=== PATIENT | male | born 1985 | race Caucasian/White ===

== ENCOUNTER 2022-09-06 11:44 | Outpatient (REF) | payer OTHER, SELFPAY ==
[2022-09-06 14:16] LABS: Alanine Aminotransferase 19 U/L (0-40); Albumin Level 4.4 g/dL (3.5-5.0); Alkaline Phosphatase 78 U/L (39-117); Anion Gap 14 (12-20); Aspartate Amino Transferase 17 U/L (5-37); Bilirubin Total 0.8 mg/dL (0.0-1.0); Blood Urea Nitrogen 21 mg/dL (9-16); Calcium 9.1 mg/dL (8.4-10.2); Carbon Dioxide 23 mmol/L (22-29); Chloride 106 mmol/L (96-108); Cholesterol 151 mg/dL; Estimated Glomerular Filt Rate > 60; Glucose Fasting 98 mg/dL (60-99); HDL Cholesterol 37 mg/dL; LDL Cholesterol Calculated 106 mg/dl; Potassium 4.2 mmol/L (3.3-5.1); Sodium 139 mmol/L (135-145); Total Protein 7.1 g/dL (6.5-8.0); Triglycerides 43 mg/dL
[2022-09-06 14:17] LABS: Appearance Urine Clear; Color Urine Yellow; Glucose Urine UA Negative (Negative); Leukocyte Esterase Urine Negative (Negative); Nitrite Urine Negative (Negative); PH 5.5 (5.0-9.0); Specific Gravity - Urine 1.025 (1.005-1.025); Urine Blood Negative (Negative); Urine Ketones Negative (Negative); Urine Protein Negative (Neg-Trace)
[2022-09-06 14:40] LABS: TSH reflex Free T4 0.96 uIU/mL (0.32-4.0)
[2022-09-06 15:05] LABS: Creatinine Urine 184.47 mg/dL; Microalbum/Creatinine Ratio Ur 3.2 ug/mg cr
== END 2022-09-06 11:45 | disposition home or self-care (01) ==
LOC: HO.WFDLDS 11:44
PROVIDERS: Visit Provider Family Medicine
DX: Z00.00 Encounter for general adult medical examination without abnormal findings (principal); I10 Essential (primary) hypertension
CPT/HCPCS: 36415; 80053; 80061; 81003; 82043; 84443

== ENCOUNTER 2022-10-23 14:30 | Outpatient (RCR) | payer OTHER, SELFPAY ==
--- NOTE | 2022-09-30 14:12 | MHC.OT.EP ---
[address] [phone] Occupational Therapy Plan of Care Date of Evaluation: 09/30/22 Diagnosis: EPICONDYLITIS RIGHT ELBOW Assessment: MR PEREZ REPORTS A SIX MONTH HISTORY OF R ELBOW PAIN. HE REPORTS THIS OCCURRING IN 2017 YET IMPROVED ON ITS OWN WITHOUT NEED FOR THERAPY, MADE LIFESTYLE CHANGES. HE HAS A CFB YET REPORTS MINIMAL PAIN RELIEF WITH USE. A 61% LIMITATION IS REPORTED PER THE QUICK DASH ASSESSMENT. HIS GOAL IS FOR HIS PAIN TO DECREASE WHEN SHAKING HANDS. ONGOING SKILLED OT IS WARRANTED TO ACHIEVE OPTIMAL FUNCTIONAL LEVEL. Frequency and Duration: The patient will be seen 3X/WEEK FOR 4 WEEKS Short Term Goals: SEE BELOW Fdc Goals: IND HEP IND USE OF HEAT/ICE IND USE OF CFB DURING IADLs REPORT <3/10 PAIN WITH IADLs AND SHAKING HANDS IND PROGRESSION OF HEP QUICK DASH <40% TRIAL ALT SLEEPING POSITIONS FOR DECREASE IN PARASTHESIA AND PAIN Treatment Plan: Therapeutic Exercise Therapeutic Activity Home Exercise Program Splinting Neuro Re-ed Patient Education Desensitization/Sensory Re-ed Edema Control ADL Training Ultrasound NMES Iontophoresis Paraffin Fluidotherapy MHP Cold Packs Joint Mobilization Soft Tissue Mobilization Kinesiotaping Other (see comments) Electronically Signed By: EDI SANCHEZ OTR/L Please Sign and return to therapist. Thank you once again for your referral.
--- NOTE | 2022-10-23 15:11 | MHC.OT.DC ---
[address] [phone] F: [phone] Occupational Therapy Discharge Note Provider: Ramiro Edgar Diagnosis: EPICONDYLITIS RIGHT ELBOW Date of Evaluation: 09/30/22 Date of Discharge: 10/23/22 Treatments to Date: 7 Discharge Status: Achieved Goals Improved Function Independent with HEP Discharge Summary: MR PEREZ HAS PROGRESSED WELL WITH HIS OT RX SESSIONS. HE WAS ISSUED A CFB FOR USE DURING THE DAY, WELL A CUSTOM NIGHT SPLINT TO REST THE WRIST EXTENSORS. HE WAS PROVIDED WITH A HEP IN WHICH HE IS ABLE TO COMPLETE INDEPENDENTLY WELL DEMO PROGRESSION OF PROGRAM. EDUCATION WAS PROVIDED ON ACTIVITY MODIFICATIONS, ERGONOMICS AND POSTURAL CORRECTIONS. HE IS READY FOR A TRANSITION TO A HOME BASED PROGRAM WITH NO FURTHER OT SERVICES WARRANTED. Electronically Signed By: PRADEEP BOWLING/Hesham Reviewed/agree with student documentation: N/A Therapist: Please Sign and return to therapist, thank you for your referral.
== END 2022-10-23 15:10 | disposition home or self-care (01) ==
LOC: HO.OT 14:30
PROVIDERS: PCP Family Medicine; Visit Provider Family Medicine
DX: M77.10 Lateral epicondylitis, unspecified elbow (principal)
CPT/HCPCS: 29105; 97033; 97110; 97140; 97165; 97760

== ENCOUNTER 2022-12-19 09:37 | Outpatient (REF) | payer OTHER, SELFPAY ==
[2022-12-19 11:40] LABS: Alanine Aminotransferase 39 U/L (0-40); Albumin Level 4.4 g/dL (3.5-5.0); Alkaline Phosphatase 64 U/L (39-117); Anion Gap 13 (12-20); Aspartate Amino Transferase 22 U/L (5-37); Bilirubin Total 0.9 mg/dL (0.0-1.0); Blood Urea Nitrogen 20 mg/dL (9-16); Calcium 9.4 mg/dL (8.4-10.2); Carbon Dioxide 24 mmol/L (22-29); Chloride 108 mmol/L (96-108); Cholesterol 139 mg/dL; Estimated Glomerular Filt Rate > 60; Glucose Fasting 83 mg/dL (60-99); HDL Cholesterol 48 mg/dL; LDL Cholesterol Calculated 85 mg/dl; Potassium 4.1 mmol/L (3.3-5.1); Sodium 141 mmol/L (135-145); Total Protein 6.8 g/dL (6.5-8.0); Triglycerides 30 mg/dL
[2022-12-19 11:59] LABS: TSH reflex Free T4 0.99 uIU/mL (0.32-4.0)
[2022-12-19 12:00] LABS: Appearance Urine Clear; Color Urine Yellow; Glucose Urine UA Negative (Negative); Leukocyte Esterase Urine Negative (Negative); Nitrite Urine Negative (Negative); Specific Gravity - Urine >= 1.030 (1.005-1.025); Urine Blood Negative (Negative); Urine Ketones 40 mg/dL (Negative); Urine Protein Negative (Neg-Trace)
== END 2022-12-19 09:38 | disposition home or self-care (01) ==
LOC: HO.WFDLDS 09:37
PROVIDERS: Visit Provider Family Medicine
DX: Z00.00 Encounter for general adult medical examination without abnormal findings (principal); E78.6 Lipoprotein deficiency
CPT/HCPCS: 36415; 80053; 80061; 81003; 84443

== ENCOUNTER 2023-05-19 14:47 | Outpatient (AMB) | payer OTHER, SELFPAY ==
[2023-05-19 15:03] VITALS: BP 128/72; PULSE 78; O2SAT 98; BMI 37.3
--- NOTE | 2023-05-19 15:03 | A.OFFPC_ITS ---
Vital Signs 05/19/23 15:03 Height 5 ft 6 in Weight 231 lb BMI 37.3 BP 128/72 Blood Pressure Location Lt brachial Position Sitting Pulse 78 Pulse Source Pulse Oximeter Pulse Oximetry (%) 98 Oxygen Delivery Method Room Air Intake Visit Reasons: medication discussion Intake Note: Patient is here for request of refill of Adderall. Allergies Nitrile Allergy (Unknown, Uncoded 05/19/23 15:07) Blisters Tobacco use date assessed: 12/19/22 Dental Screening Dental Screen Date: 05/19/23 Did you have a dental visit in the last 12 months?: Yes Did you have a dental problem in the last 6 months where you did not have access to dental care?: No Was dental information given to patient?: No HPI medication discussion HPI Details 38 y/o male presents to discuss medications. He reports hx of ADHD and states he had been on Adderall. Reviewed [facility] medical record; patient has no CIS of ADHD and had been on Adderall XR 10 mg and Adderall immediate release 10 mg. 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 He would like to resume Adderall. [facility] Social History Housing: House Patient Tobacco Use Status: Never used Tobacco e-Cigarette/Vaping Use: Never Used Second Hand Smoke Exposure: No Current occupational status: unemployed Current occupational exposures/hazards: No Cognitive needs: No Hearing needs: No Vision needs: No Questionnaire PHQ-9 Over the last 2 weeks, how often have you been bothered by any of the following problems? 1. Little interest or pleasure in doing things: not at all 2. Feeling down, depressed, or hopeless: not at all 3. Trouble falling or staying asleep, or sleeping too much: not at all 4. Feeling tired or having little energy: not at all 5. Poor appetite or overeating: not at all 6. Feeling bad about yourself - or that you are a failure or have let yourself or your family down: not at all 7. Trouble concentrating on things, such as reading the newspaper or watching television: nearly every day 8. Moving or speaking so slowly that other people could have noticed. Or the opposite - being so fidgety or restless that you have been moving around a lot more than usual: not at all 9. Thoughts that you would be better off or of hurting yourself in some way: not at all Total score: 3 Source: Developed by Drs. Viktor Franz, Ashley Jacobsen, Miguel Crocker and colleagues, with an educational ayaka from [employer]. ABDIEL-7 AMB Questionnaire ABDIEL-7 Date ABDIEL - 7 assessed: 05/19/23 Feeling nervous, anxious, or on edge: 0 = Not at all Not being able to stop or control worryin = Not at all Worrying too much about different things: 0 = Not at all Trouble relaxin = Not at all Being so restless that it is hard to sit still: 0 = Not at all Becoming easily annoyed or irritable: 0 = Not at all Feeling afraid as if something awful might happen: 0 = Not at all Total ABDIEL-7 score (0-4 normal; 5-9 mild; 10-14 moderate; 15-21 severe): 0 Source: Developed by Drs. Viktor Franz, Ashley Jacobsen, Miguel Crocker and colleagues, with an educational ayaka from [employer]. Review of Systems Const Denies chills, Denies fatigue, Denies fever(s), Denies headache(s) and Denies weakness ENT Denies dizziness and Denies headache(s) Card Denies dyspnea Resp Denies cough, Denies dyspnea, Denies wheezing and Denies other (shortness of breath) Musc Denies numbness and Denies tingling Neuro Denies dizziness, Denies headache(s), Denies numbness, Denies tingling and Denies weakness Psych Denies anxiety and Denies depression Endo Denies fatigue Aller/Immun Denies wheezing Physical exam (Primary Care) Vital Signs: Last Vital Signs Pulse 78 05/19/23 15:03 BP 128/72 05/19/23 15:03 Pulse Ox 98 05/19/23 15:03 Oxygen Delivery Method Room Air 05/19/23 15:03 BMI result Body Mass Index 37.3 Tobacco/Smoking Status: Tobacco use Status Tobacco use date assessed 12/19/22 05/19/23 15:08 Patient Tobacco Use Status Never used Tobacco 05/19/23 15:08 e-Cigarette/Vaping Use Never Used 05/19/23 15:08 PHQ-9: PHQ-9 Score PHQ-9: Total score 3 05/19/23 15:17 Const General: well developed; No acute distress Nutritional Appearance: well nourished and obese Orientation/consciousness: patient oriented x3 HENMT Head: Yes normocephalic and Yes atraumatic Eyes General: appearance normal, both eyes and all related structures Pupils: Equal, round and reactive pupils present EOM: EOMs intact bilaterally Resp Effort & Inspection: normal respiratory effort Neuro General: patient oriented x3 and gait normal Cranial nerves: Yes Equal, round and reactive pupils present Psych Affect: normal affect Assessment and Plan Assessment & Plan (1) ADHD: Code(s): F90.9 - Attention-deficit hyperactivity disorder, unspecified type Plan: Will start patient back on Adderall XR 10 mg daily. Discussed that we will follow-up in a month and I would like him to try to take it consistently each day. He will call me if he is having any difficulties. New contract is signed Medications: New dextroamphetamine-amphetamine 10 mg ER (Adderall XR) [facility] verified. Partial refill upon request. 10 mg PO QAM 30 days 30 caps 0RF Coding Level of Care Code Est Pt Level 3 (51829) Diagnoses ADHD F90.9
== END 2023-05-19 15:57 | disposition home or self-care (01) ==
PROVIDERS: PCP Family Medicine; Visit Provider Family Medicine
DX: F90.9 Attention-deficit hyperactivity disorder, unspecified type (principal)
CPT/HCPCS: 99213

== ENCOUNTER 2023-06-25 16:34 | Outpatient (AMB) | payer OTHER, SELFPAY ==
[2023-06-25 16:36] VITALS: BP 124/74; PULSE 85; O2SAT 95; BMI 36.5
--- NOTE | 2023-06-25 16:36 | MHC.PC.OV ---
Vital Signs 06/25/23 16:36 Height 5 ft 6 in Weight 226 lb BMI 36.5 BP 124/74 Blood Pressure Location Lt brachial Position Standing Pulse 85 Pulse Source Pulse Oximeter Pulse Oximetry (%) 95 Oxygen Delivery Method Room Air Intake Visit Reasons: Follow-up ADHD Intake Note: Patient is here to follow up on ADHD. Tobacco use date assessed: 06/25/23 Dental Screening Dental Screen Date: 06/25/23 Did you have a dental visit in the last 12 months?: Yes Did you have a dental problem in the last 6 months where you did not have access to dental care?: No Was dental information given to patient?: Patient has dentist HPI Follow-up ADHD HPI Details 38 y/o male presents to f/u ADHD. Started him on Adderall XR 10mg daily. He denies any issues with appetite/sleep/anxiety. He states Adderall has not been helping him yet. HPI Comments History of Present Illness Details Documentation assistance for Ramiro Edgar MD, was provided by Yariel Grimaldo,? Packaging Manager on 06/25/2023 5:13 PM EST. I, Dr. Edgar, have read, observed, and verified documentation.? [facility] Social History Housing: House Patient Tobacco Use Status: Never used Tobacco e-Cigarette/Vaping Use: Never Used Second Hand Smoke Exposure: No Current occupational status: unemployed Current occupational exposures/hazards: No Cognitive needs: No Hearing needs: No Vision needs: No Questionnaire ABDIEL-7 AMB Questionnaire ABDIEL-7 Date ABDIEL - 7 assessed: 05/19/23 Source: Developed by Drs. Viktor Franz, Ashley Jacobsen, Miguel Crocker and colleagues, with an educational ayaka from [employer]. Review of Systems Const Denies chills, Denies fatigue, Denies fever(s), Denies headache(s) and Denies weakness ENT Denies dizziness and Denies headache(s) Card Denies dyspnea Resp Denies cough, Denies dyspnea, Denies wheezing and Denies other (shortness of breath) Musc Denies numbness and Denies tingling Neuro Denies dizziness, Denies headache(s), Denies numbness, Denies tingling and Denies weakness Psych Denies anxiety and Denies depression Endo Denies fatigue Aller/Immun Denies wheezing Physical exam (Primary Care) Vital Signs: Last Vital Signs Pulse 85 06/25/23 16:36 BP 124/74 06/25/23 16:36 Pulse Ox 95 06/25/23 16:36 Oxygen Delivery Method Room Air 06/25/23 16:36 BMI result Body Mass Index 36.5 Tobacco/Smoking Status: Tobacco use Status Tobacco use date assessed 06/25/23 06/25/23 16:42 Patient Tobacco Use Status Never used Tobacco 06/25/23 16:42 e-Cigarette/Vaping Use Never Used 06/25/23 16:42 Const General: well developed; No acute distress Nutritional Appearance: well nourished Orientation/consciousness: patient oriented x3 HENMT Head: Yes normocephalic and Yes atraumatic Eyes General: appearance normal, both eyes and all related structures Pupils: Equal, round and reactive pupils present EOM: EOMs intact bilaterally Resp Effort & Inspection: normal respiratory effort Neuro General: patient oriented x3 and gait normal Cranial nerves: Yes Equal, round and reactive pupils present Psych Affect: normal affect Assessment and Plan Assessment & Plan (1) ADHD: Code(s): F90.9 - Attention-deficit hyperactivity disorder, unspecified type Plan: Patient says that 10 mg daily isn't really helping his concentration very much if at all and he also denies any adverse effects such as sleep problems appetite problems or anxiety issues. Will increase Adderall XR to 20 mg daily (2) Sleep apnea: Code(s): G47.30 - Sleep apnea, unspecified Plan: Hypersomnia and question of sleep apnea Referred to Sleep Medicine Orders: Referrals Sleep Medicine Referral G47.30 - Sleep apnea, unspecified Coding Level of Care Code Est Pt Level 3 (30718) Diagnoses ADHD F90.9 Sleep apnea G47.30
== END 2023-06-25 17:19 | disposition home or self-care (01) ==
PROVIDERS: PCP Family Medicine; Visit Provider Family Medicine
DX: F90.9 Attention-deficit hyperactivity disorder, unspecified type (principal); G47.30 Sleep apnea, unspecified
CPT/HCPCS: 99213

== ENCOUNTER → 2024-02-18 16:04 | Outpatient (AMB) | payer OTHER, SELFPAY ==
--- NOTE | 2024-02-18 16:10 | A.OFFPC_ITS ---
Vital Signs 02/18/24 16:15 Height 5 ft 8 in Weight 257 lb BMI 39.1 BP 112/86 Blood Pressure Location Lt brachial Position Sitting Respiration 13 Pulse 86 Pulse Source Pulse Oximeter Pulse Oximetry (%) 97 Oxygen Delivery Method Room Air Intake Visit Reasons: Extended exam w f/u labs & health maint., f/u ADHD Intake Note: Patient is here for his cpe/follow up labs. Patient reports he still has sore feet bilaterally. Patient reports he went to physical therapy and completed it. Library Monitor Required: No Accompanied by: Self / Same As Patient Allergies No Known Allergies Allergy (Verified 02/18/24 16:21) Medication List - Last Reconciled 02/18/24 by Ramiro Edgar MD dextroamphetamine-amphetamine 20 mg ER (Adderall XR) 20 mg PO DAILY 30 days Tobacco use date assessed: 02/18/24 Dental Screening Dental Screen Date: 02/18/24 Did you have a dental visit in the last 12 months?: Yes Did you have a dental problem in the last 6 months where you did not have access to dental care?: No Was dental information given to patient?: Patient has dentist HPI Extended exam w f/u labs & health maint., f/u ADHD HPI Details 39 y/o male presents for a CPE with f/u labs and health maintenance. Had increased Adderall from 10mg daily to 20mg daily from office visit in June. No recent labs to review. Pt has complaints of bilateral foot pain. He denies any appetite problems/sleep problems/increased anxiety on Adderall 20mg. He states people notice when he does not take his Adderall. HPI Comments History of Present Illness Details Documentation assistance for Ramiro Edgar MD, was provided by Yariel Grimaldo, Maint Mechanic on 02/18/2024 4:28 PM EST. I, Dr. Edgar, have read, observed, and verified documentation. [facility] Surgical History History of wisdom tooth extraction History of colonoscopy History of appendectomy History of knee surgery Social History Household Members: Children Household Members Other:: Dog, roommates Housing: House Are you a primary child caregiver to a significant other at home: No Do you presently have visiting nurse or other home services: No 75 years or older and lives alone: No Alcohol intake: never Patient Tobacco Use Status: Never used Tobacco e-Cigarette/Vaping Use: Never Used Second Hand Smoke Exposure: No Use of substances other than those prescribed or required for medical reasons: No Have you been hit, kicked, punched, or otherwise hurt by someone within the past year? If so, by whom?: No Do you feel safe in your current relationship?: No Current Relationship Is there a partner from a previous relationship who is making you feel unsafe now?: No Are you made to feel afraid or neglected: No service: No Current occupational status: employed Current occupation: [employer] Current occupational exposures/hazards: No Cognitive needs: No Hearing needs: No Vision needs: No Questionnaire PHQ-9 Over the last 2 weeks, how often have you been bothered by any of the following problems? 1. Little interest or pleasure in doing things: not at all 2. Feeling down, depressed, or hopeless: not at all 3. Trouble falling or staying asleep, or sleeping too much: not at all 4. Feeling tired or having little energy: not at all 5. Poor appetite or overeating: not at all 6. Feeling bad about yourself - or that you are a failure or have let yourself or your family down: not at all 7. Trouble concentrating on things, such as reading the newspaper or watching television: not at all 8. Moving or speaking so slowly that other people could have noticed. Or the opposite - being so fidgety or restless that you have been moving around a lot more than usual: not at all 9. Thoughts that you would be better off or of hurting yourself in some way: not at all Total score: 0 Depression Screening Interpretation: Negative Depression Screening Done: Yes 09625 - PHQ-9 Billing: Yes Source: Developed by Drs. Viktor Franz, Ashley Jacobsen, Miguel Crocker and colleagues, with an educational ayaka from [employer]. Thrive Questionnaire Date Thrive assessed: 02/18/24 I am a: Patient What is your living situation today?: I have a steady place to live Within the past 12 months, did the food you bought not last and you didn't have the money to get more?: Never true Within the past 12 months, did you worry whether your food would run out before you got money to buy more?: Never true Do you have trouble paying for medicines?: No Do you have trouble getting transportation to medical appointments?: No Do you have trouble paying your heating and electricity bill?: No Do you have trouble taking care of your child, family member or friend?: No Do you have trouble with day-to-day activities such as bathing, preparing meals, shopping, managing finances, etc.?: No Are you currently unemployed and looking for a job?: No Are you interested in more education?: No Please select the resources that you would like help with: None Currently or been in a relationship where the following occur: no concerns reported THRIVE Score: 0 AUDIT C Alcohol Use Questionnaire (AUDIT-C) 1. How often do you have a drink containing alcohol?: Never 3. How often do you have six or more drinks on one occasion?: Never Total Score: 0 ABDIEL-7 AMB Questionnaire ABDIEL-7 Date ABDIEL - 7 assessed: 02/18/24 Feeling nervous, anxious, or on edge: 0 = Not at all Not being able to stop or control worryin = Not at all Worrying too much about different things: 0 = Not at all Trouble relaxin = Not at all Being so restless that it is hard to sit still: 0 = Not at all Becoming easily annoyed or irritable: 0 = Not at all Feeling afraid as if something awful might happen: 0 = Not at all Total ABDIEL-7 score (0-4 normal; 5-9 mild; 10-14 moderate; 15-21 severe): 0 Source: Developed by Drs. Viktor Franz, Ashley Jacobsen, Miguel Crocker and colleagues, with an educational ayaka from [employer]. ABDIEL-7 Assessment Billing ABDIEL-7 Assessment Tool: ABDIEL-7 Assessment 51895 Review of Systems Const Denies chills, Denies fatigue, Denies fever(s), Denies headache(s) and Denies weakness Eyes Denies change in vision ENT Denies dizziness, Denies headache(s), Denies hearing loss, Denies nasal congestion, Denies sinus pain, Denies sinus pressure and Denies sore throat Card Denies chest pain, Denies lightheadedness, Denies dyspnea and Denies other (palpitations) Resp Denies cough, Denies dyspnea and Denies wheezing GI Denies abdominal pain, Denies melena, Denies hematochezia, Denies change in bowel habits, Denies dyspepsia and Denies nausea Denies hematuria and Denies dysuria Musc Denies abnormal gait, Denies myalgias, Denies arthralgias, Denies numbness and Denies tingling Skin/Breast Denies rash, Denies unusual bruising and Denies wounds Neuro Denies abnormal gait, Denies dizziness, Denies headache(s), Denies memory loss, Denies numbness, Denies Sensory deficit (Neuro), Denies tingling and Denies weakness Psych Denies anxiety, Denies depression and Denies memory loss Endo Denies cold intolerance, Denies fatigue, Denies heat intolerance, Denies polydipsia and Denies polyuria Danilo/Lymph Denies easy bleeding and Denies easy bruising Aller/Immun Denies wheezing Physical exam (Primary Care) Vital Signs: Last Vital Signs Pulse 86 02/18/24 16:15 Resp 13 02/18/24 16:15 BP 112/86 02/18/24 16:15 Pulse Ox 97 02/18/24 16:15 Oxygen Delivery Method Room Air 02/18/24 16:15 BMI result Body Mass Index 39.1 Tobacco/Smoking Status: Tobacco use Status Tobacco use date assessed 02/18/24 02/18/24 16:26 Patient Tobacco Use Status Never used Tobacco 02/18/24 16:26 e-Cigarette/Vaping Use Never Used 02/18/24 16:26 PHQ-9: PHQ-9 Score PHQ-9: Total score 0 02/18/24 16:28 Depression Screening Interpretation: Negative Thrive Assessment: Date of Thrive Assessment Date Thrive assessed 02/18/24 02/18/24 16:27 Currently or been in a relationship where the following occur: no concerns reported Const General: no acute distress, well developed, alert and awake Nutritional Appearance: well nourished Orientation/consciousness: patient oriented x3 HENMT Head: Yes normocephalic and Yes atraumatic Ears: hearing grossly normal bilaterally and TM's normal bilaterally General nose exam: Normal external nose present and Normal nares present Mouth: Normal oral and palatal mucosa present and moist mucous membranes Teeth and gingiva: dentition normal Throat: Yes posterior oropharynx normal Eyes General: appearance normal, both eyes and all related structures Pupils: Equal, round and reactive pupils present and Pupil accommodation reflex normal EOM: EOMs intact bilaterally Neck Neck: Yes normal visual inspection, Yes no lymphadenopathy and Yes trachea midline Thyroid: Thyroid normal Carotids: no bruits Lymphatic: no lymphadenopathy noted Chest Chest palpation & inspection: normal inspection of the chest Resp Effort & Inspection: normal respiratory effort Auscultation: clear to auscultation bilaterally Cardio Rate: regular rate Rhythm: regular rhythm Heart sounds: S1 normal heart sound present, S2 normal heart sound present, no gallops, no murmurs and no rubs Bruits: no abdominal aortic bruits and no carotid bruits GI Palpation (GI): No Abdominal aortic bruit present, Soft to palpation, nontender, No hepatosplenomegaly present and No Rebound tenderness present Auscultation: normal bowel sounds General: Yes no CVA tenderness Back/Spine/Pelvis Back: no CVA tenderness Cervical Spine: cervical ROM normal and No Cervical spine tenderness Thoracic/Lumbar Spine: thoraco-lumbar ROM normal, No pain with thoraco-lumbar ROM, No thoracic spinal tenderness and No lumbar spinal tenderness Skin Lesions: no lesions Rashes: no rashes Trauma: no lacerations or abrasions Wounds: no wounds Nails: normal Neuro General: patient oriented x3 Cranial nerves: Yes Equal, round and reactive pupils present Cognition (Neuro): normal cognition Gait exam (Neuro): Normal gait present Motor exam (neuro): 5/5 motor strength present throughout Sensory Exam: No Sensory deficit (Neuro) Deep tendon reflexes (DTR's): Right patellar reflex intensity grade: 2+ and Left patellar reflex intensity grade: 2+ Extrem General: Yes normal to inspection and No edema Psych Appearance: grossly normal Affect: normal affect Attitude: cooperative Thought process: Normal thought process present Assessment and Plan Assessment & Plan (1) Adult general medical exam: Code(s): Z00.00 - Encounter for general adult medical examination without abnormal findings Plan: 39-year-old?male?presents?for?complete?physical?exam Encouraged?healthy?diet?with?active?lifestyle?and?plenty?of?exercise.??Encourage d?weight?loss. (2) Bilateral foot pain: Code(s): M79.671 - Pain in right foot; M79.672 - Pain in left foot Plan: Bilateral?plantar?foot?pain?and?plantar?fasciitis He?would?like?to?be?referred?to??again. Refer (3) ADHD: Code(s): F90.9 - Attention-deficit hyperactivity disorder, unspecified type Plan: Medication?is?objectively?helping?as?his?coworkers?noticed?when?he?is?not?taking ?the?medication. Not?adversely?a ffecting?appetite.??Does?not?appear?to?be?impacting?anxiety?or?sleep. 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 Lifestyle?changes?due?to?working?2/3?shift He?is?hoping?to?switch?off?of?this?shift?and?I?think?that?will?help?improve?his? ability?to?exercise?and?eat?a?healthier?diet. Encouraged?a?healthy?diet?and?decreased?portion?sizes. Continue?exercise (5) Weight gain: Code(s): R63.5 - Abnormal weight gain Plan: As?above Orders: Orders Comprehensive [place]. Panel Fast Today Z00.00 - Encounter for general adult med ical examination without abnormal findings Microalbumin, Random (w Creat) Today I10 - Essential (primary) hypertension UA and rflx microscopic Today Z00.00 - Encounter for general adult medical examination without abnormal findings TSH reflex Free T4 Today Z00.00 - Encounter for general adult medical examination without abnormal findings Hemoglobin A1c Today E66.9 - Obesity, unspecified, R73.01 - Impaired fasting glucose Lipid Panel Today Z00.00 - Encounter for general adult medical examination without abnormal findings Coding Level of Care Code Est Pt Level 3 (91864) Est Pt Prev Care 18-39y(41810) Diagnoses Adult general medical exam Z00.00 Bilateral foot pain M79.671; M79.672 ADHD F90.9 Obesity (BMI 30-39.9) E66.9 Weight gain R63.5 Additional Codes ABDIEL-7 Assessment Billing - ABDIEL-7 Assessment Tool: ABDIEL-7 Assessment 61196 ([id number])
[2024-02-18 16:15] VITALS: BP 112/86; PULSE 86; RESP 13; O2SAT 97; BMI 39.1
== END ==
PROVIDERS: PCP Family Medicine; Visit Provider Family Medicine
DX: Z00.00 Encounter for general adult medical examination without abnormal findings (principal); M79.671 Pain in right foot; E66.9 Obesity, unspecified; Z68.39 Body mass index [BMI] 39.0-39.9, adult; M79.672 Pain in left foot; F90.9 Attention-deficit hyperactivity disorder, unspecified type; R63.5 Abnormal weight gain
CPT/HCPCS: 99395

== ENCOUNTER 2024-04-20 12:27 | Outpatient (REF) | payer OTHER, SELFPAY ==
[2024-04-20 14:35] LABS: Appearance Urine Clear; Color Urine Yellow; Glucose Urine UA Negative (Negative); Leukocyte Esterase Urine Negative (Negative); Nitrite Urine Negative (Negative); PH 6.5 (5.0-9.0); Urine Blood Negative (Negative); Urine Ketones Negative (Negative); Urine Protein Negative (Neg-Trace)
[2024-04-20 14:47] LABS: Estimated Average Glucose 108 mg/dL; Hemoglobin A1c % 5.4 % (<6.0)
[2024-04-20 14:54] LABS: Alanine Aminotransferase 20 U/L (0-40); Albumin Level 4.4 g/dL (3.5-5.0); Alkaline Phosphatase 69 U/L (39-117); Anion Gap 11 (12-20); Aspartate Amino Transferase 19 U/L (5-37); Bilirubin Total 0.5 mg/dL (0.0-1.0); Blood Urea Nitrogen 11 mg/dL (9-16); Calcium 9.5 mg/dL (8.4-10.2); Carbon Dioxide 26 mmol/L (22-29); Chloride 107 mmol/L (96-108); Cholesterol 151 mg/dL (<200); Estimated Glomerular Filt Rate > 60; Glucose Fasting 86 mg/dL (60-99); HDL Cholesterol 39 mg/dL (>40); LDL Cholesterol Calculated 102 mg/dL (<100); Sodium 140 mmol/L (135-145); Total Protein 7.2 g/dL (6.5-8.0); Triglycerides 51 mg/dL (<150)
[2024-04-20 15:10] LABS: Creatinine Urine 170.24 mg/dL; Microalbumin Urine < 5.0 mg/L
[2024-04-20 15:13] LABS: TSH reflex Free T4 1.48 uIU/mL (0.32-4.0)
== END 2024-04-20 12:28 | disposition home or self-care (01) ==
LOC: HO.WFDLDS 12:27
PROVIDERS: Visit Provider Family Medicine
DX: Z00.00 Encounter for general adult medical examination without abnormal findings (principal); R73.01 Impaired fasting glucose; E66.9 Obesity, unspecified; I10 Essential (primary) hypertension
CPT/HCPCS: 36415; 80053; 80061; 81003; 82043; 82570; 83036; 84443

== ENCOUNTER → 2024-05-20 14:52 | Outpatient (AMB) | payer OTHER, SELFPAY ==
--- NOTE | 2024-05-20 14:49 | A.OFFPC_ITS ---
Intake Visit Reasons: FOLLOW UP LABS [facility] Required: No Allergies No Known Allergies Allergy (Verified 05/20/24 14:50) Medication List - Last Reconciled 05/20/24 by Ramiro Edgar MD dextroamphetamine-amphetamine 20 mg ER (Adderall XR) 20 mg PO DAILY 30 days Tobacco use date assessed: 02/18/24 Dental Screening Dental Screen Date: 02/18/24 HPI FOLLOW UP LABS HPI Details Pt presents to f/u [facility]. He denies any issues with appetite/sleep/increased anxiety. He feels Adderall has not been helping however. Pt reports a general muscular pain. [facility] Surgical History History of wisdom tooth extraction History of colonoscopy History of appendectomy History of knee surgery Social History Household Members: Children Household Members Other:: Dog, roommates Housing: House Are you a primary care transitions manager to a significant other at home: No Do you presently have visiting nurse or other home services: No 75 years or older and lives alone: No Alcohol intake: never Patient Tobacco Use Status: Never used Tobacco e-Cigarette/Vaping Use: Never Used Second Hand Smoke Exposure: No service: No Current occupational status: employed 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 Viktor Franz, Ashley Jacobsen, Miguel Crocker and colleagues, with an educational ayaka from [email or web address]. Review of Systems Const Denies chills, Denies fatigue, Denies fever(s), Denies headache(s) and Denies weakness ENT Denies dizziness and Denies headache(s) Card Denies dyspnea Resp Denies cough, Denies dyspnea, Denies wheezing and Denies other (shortness of breath) Musc Denies numbness and Denies tingling Neuro Denies dizziness, Denies headache(s), Denies numbness, Denies tingling and Denies weakness Psych Denies anxiety and Denies depression Endo Denies fatigue Aller/Immun Denies wheezing Physical exam (Primary Care) Tobacco/Smoking Status: Tobacco use Status Tobacco use date assessed 02/18/24 05/20/24 14:50 Patient Tobacco Use Status Never used Tobacco 05/20/24 14:50 e-Cigarette/Vaping Use Never Used 05/20/24 14:50 Thrive Assessment: Date of Thrive Assessment Date Thrive assessed 02/18/24 05/20/24 14:50 Telehealth Telehealth Telehealth Platform: Telephone Location of provider rendering services: practice address Location of patient: other Patient Identification confirmed using: Name, : Yes Telehealth method: voice only Patient verbally consented to treatment: Yes Patient verbally consented to billing insurance company: Yes Patient informed of any privacy concerns related to visit: Yes Assessment and Plan Assessment & Plan (1) ADHD: Code(s): F90.9 - Attention-deficit hyperactivity disorder, unspecified type Plan: Patient?notes?that?Adderall?XR?20?mg?is?only?helping?some?of?the?time No?adverse?effects?such?as?increased?anxiety,?appetite?or?sleep?problems Will?increase?dose?to?30?mg?daily Follow-up?in?about?3?months (2) Low HDL (under 40): Code(s): E78.6 - Lipoprotein deficiency Plan: Increase?exercise (3) Sleep apnea: Code(s): G47.30 - Sleep apnea, unspecified Plan: Patient?was?referred?to?Sleep?Medicine?and?has?not?been?scheduled. He?will?contact?them?to?make?an?appoint (4) Myalgia: Code(s): M79.10 - Myalgia, unspecified site Plan: Achiness/myalgias. Will?check?labs?and?we?can?follow-up?on?these?at?if?action?is?required.??Otherwi se?will?review?together?at?his?next?visit Orders: Orders Comprehensive Met. Panel Today M79.10 - Myalgia, unspecified site Erythrocyte Sedimentation Rate Today M79.10 - Myalgia, unspecified site Complete Blood Count Auto Diff Today M79.10 - Myalgia, unspecified site, Z00.00 - Encounter for general adult medical examination without abnormal findings Lyme IgG/IgM w/reflex to WB Today M79.10 - Myalgia, unspecified site CRP High Sensitivity Today M79.10 - Myalgia, unspecified site Medications: New dextroamphetamine-amphetamine 30 mg ER (Adderall XR) [facility]Pat Verified. Partial Fill upon patient request. 30 mg PO QAM 30 days 30 caps 0RF F90.9 - Attention-deficit hyperactivity disorder, unspecified type Discontinued dextroamphetamine-amphetamine 20 mg ER (Adderall XR) MassPat Verified. Partial Fill upon patient request. Discontinued Reason: Doctor's Order 20 mg PO DAILY 30 days 30 caps 0RF F90.9 - Attention-deficit hyperactivity disorder, unspecified type Coding Level of Care Code Tele Est Pt Level 2 (94766) Diagnoses ADHD F90.9 Low HDL (under 40) E78.6 Sleep apnea G47.30 Myalgia M79.10
== END ==
LOC: HO.HMGFM 14:52
PROVIDERS: PCP Family Medicine; Visit Provider Family Medicine
DX: F90.9 Attention-deficit hyperactivity disorder, unspecified type (principal); E78.6 Lipoprotein deficiency; G47.30 Sleep apnea, unspecified; M79.10 Myalgia, unspecified site
CPT/HCPCS: 99212

== ENCOUNTER 2024-08-02 12:16 | Outpatient (REF) | payer OTHER, SELFPAY ==
[2024-08-02 14:24] LABS: MANUAL DIFF FLAG NO
[2024-08-02 14:28] LABS: Basophils Percent Auto 0.6 % (0-2); Eosinophils Absolute Auto 0.1 X10*3/uL (0.0-0.4); Eosinophils Percent Auto 0.9 % (0-4); Hematocrit 43.5 % (42.0-52.0); Imm Gran Abs Auto 0.03 X10*3/uL (0.00-0.03); Imm Gran Pct Auto 0.4 % (0.0-0.4); Lymphocytes Absolute Auto 1.7 X10*3/uL (1.2-4.9); Lymphocytes Percent Auto 24.6 % (20-40); Mean Corpuscular HGB Conc 34.5 g/dl (31.0-36.0); Mean Corpuscular Hemoglobin 31.6 pg (27.0-33.0); Mean Corpuscular Volume 91.6 fL (80.0-98.0); Mean Platelet Volume 9.6 fL (9.4-12.4); Monocytes Absolute Auto 0.8 X10*3/uL (0.1-1.2); Monocytes Percent Auto 10.9 % (2-11); Neutrophils Absolute Auto 4.4 x10*3/uL (2.0-8.3); Neutrophils Percent Auto 62.6 % (45-73); Platelet Count 212 X10*3/uL (160-400); Red Blood Count 4.75 X10*6/uL (4.60-5.80); Red Cell Distribution Width 12.7 % (11.0-16.0)
[2024-08-02 14:43] LABS: Alanine Aminotransferase 16 U/L (0-40); Albumin Level 4.4 g/dL (3.5-5.0); Alkaline Phosphatase 78 U/L (39-117); Anion Gap 12 (12-20); Aspartate Amino Transferase 16 U/L (5-37); Bilirubin Total 0.6 mg/dL (0.0-1.0); Blood Urea Nitrogen 9 mg/dL (9-16); Calcium 9.6 mg/dL (8.4-10.2); Carbon Dioxide 27 mmol/L (22-29); Chloride 107 mmol/L (96-108); Estimated Glomerular Filt Rate > 60; Glucose Random 101 mg/dL (60-115); Potassium 4.5 mmol/L (3.3-5.1); Sodium 141 mmol/L (135-145); Total Protein 7.5 g/dL (6.5-8.0)
[2024-08-02 15:10] LABS: Erythrocyte Sedimentation Rate 8 MM/HR (0-15)
[2024-08-03 22:13] LABS: Lyme Abs Screen <0.90 index
[2024-08-04 03:19] LABS: CRP High Sensitivity 11.3 mg/L
== END 2024-08-02 12:17 | disposition home or self-care (01) ==
LOC: HO.WFDLDS 12:16
PROVIDERS: Visit Provider Family Medicine
DX: Z00.00 Encounter for general adult medical examination without abnormal findings (principal); M79.10 Myalgia, unspecified site
CPT/HCPCS: 36415; 80053; 85025; 85652; 86141; 86617; 86618

== ENCOUNTER 2024-08-05 09:36 | Outpatient (AMB) | payer OTHER, SELFPAY ==
--- NOTE | 2024-08-05 09:48 | A.OFFPC_ITS ---
Vital Signs 08/05/24 09:51 Height 5 ft 8 in Weight 257 lb BMI 39.1 BP 100/70 Blood Pressure Location Rt brachial Position Sitting Respiration 12 Pulse 94 Pulse Source Pulse Oximeter Temp 97.9 F Temp Source Oral Pulse Oximetry (%) 95 Oxygen Delivery Method Room Air Intake Visit Reasons: follow up ADHD Allergies No Known Allergies Allergy (Verified 08/05/24 09:55) Tobacco use date assessed: 02/18/24 Dental Screening Dental Screen Date: 02/18/24 HPI follow up ADHD HPI Details 39 y/o male presents to f/u ADHD. Had increased Adderall dose last office visit in May. Notes he had tried to get a hold of the sleep medicine department but states when he called they said they were not accepting new patients. He is on Adderall 30mg. Denies any issues with sleep, increased anxiety, appetite. Pt reports chest discomfort that started about 6 months ago. [facility] Surgical History History of wisdom tooth extraction History of colonoscopy History of appendectomy History of knee surgery Social History Household Members: Children Household Members Other:: Dog, roommates Housing: House Are you a primary palliative care coordinator to a significant other at home: No Do you presently have visiting nurse or other home services: No 75 years or older and lives alone: No Alcohol intake: never Patient Tobacco Use Status: Never used Tobacco e-Cigarette/Vaping Use: Never Used Second Hand Smoke Exposure: No service: No Current occupational status: employed 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 Current occupational exposures/hazards: No Cognitive needs: No Hearing needs: No Vision needs: No Questionnaire Thrive Questionnaire Date Thrive assessed: 02/18/24 ABDIEL-7 AMB Questionnaire ABDIEL-7 Date ABDIEL - 7 assessed: 08/05/24 Feeling nervous, anxious, or on edge: 0 = Not at all Not being able to stop or control worryin = Not at all Worrying too much about different things: 0 = Not at all Trouble relaxin = Not at all Being so restless that it is hard to sit still: 3 = Nearly every day Becoming easily annoyed or irritable: 1 = Several days Feeling afraid as if something awful might happen: 0 = Not at all Total ABDIEL-7 score (0-4 normal; 5-9 mild; 10-14 moderate; 15-21 severe): 4 Source: Developed by Drs. Viktor Franz, Ashley Jacobsen, Miguel Crocker and colleagues, with an educational ayaka from [employer]. ABDIEL-7 Assessment Billing ABDIEL-7 Assessment Tool: ABDIEL-7 Assessment 00230 Review of Systems Const Denies chills, Denies fatigue, Denies fever(s), Denies headache(s) and Denies weakness ENT Denies dizziness and Denies headache(s) Card Denies chest pain, Denies lightheadedness, Denies dyspnea and Denies other (Palpitations) Resp Denies cough, Denies dyspnea, Denies wheezing and Denies other ( shortness of breath) Musc Denies numbness and Denies tingling Neuro Denies dizziness, Denies headache(s), Denies numbness, Denies tingling, Denies paresthesias and Denies weakness Psych Denies anxiety and Denies depression Endo Denies fatigue Aller/Immun Denies wheezing Physical exam (Primary Care) Vital Signs: Last Vital Signs Temp 97.9 F 08/05/24 09:51 Pulse 94 08/05/24 09:51 Resp 12 08/05/24 09:51 BP 100/70 08/05/24 09:51 Pulse Ox 95 08/05/24 09:51 Oxygen Delivery Method Room Air 08/05/24 09:51 BMI result Body Mass Index 39.1 Tobacco/Smoking Status: Tobacco use Status Tobacco use date assessed 02/18/24 08/05/24 09:48 Patient Tobacco Use Status Never used Tobacco 08/05/24 09:48 e-Cigarette/Vaping Use Never Used 08/05/24 09:48 Thrive Assessment: Date of Thrive Assessment Date Thrive assessed 02/18/24 08/05/24 09:48 Const General: no acute distress and well developed Nutritional Appearance: well nourished Orientation/consciousness: patient oriented x3 HENMT Head: Yes normocephalic and Yes atraumatic Eyes General: appearance normal, both eyes and all related structures Pupils: Equal, round and reactive pupils present EOM: EOMs intact bilaterally Resp Effort & Inspection: normal respiratory effort Auscultation: clear to auscultation bilaterally Cardio Rate: regular rate Rhythm: regular rhythm Heart sounds: S1 normal heart sound present, S2 normal heart sound present, no gallops, no murmurs and no rubs Neuro General: patient oriented x3 and gait normal Cranial nerves: Yes Equal, round and reactive pupils present Psych Affect: normal affect Coding Level of Care Code Est Pt Level 4 (28510) Diagnoses ADHD F90.9 Sleep apnea G47.30 Chest discomfort R07.89 Additional Codes ABDIEL-7 Assessment Billing - ABDIEL-7 Assessment Tool: ABDIEL-7 Assessment [id number] ([id number]) Assessment & Plan Assessment & Plan (1) ADHD: Code(s): F90.9 - Attention-deficit hyperactivity disorder, unspecified type Category: Medical Plan: Medication?was?increased?from?20?mg?to?30?mg?at?last?visit. Medication?is?working No?change?in?appetite,?anxiety?or?sleep. Patient?falls?asleep?easily?though?he?has?difficulty?staying?asleep-see?below. Continue?current?medication (2) Sleep apnea: Code(s): G47.30 - Sleep apnea, unspecified Category: Medical Plan: Had?referred?patient?for?sleep?study?but?this?has?not?been?scheduled?yet. Referring?him?to?[facility]Sleep?Medicine. (3) Chest discomfort: Code(s): R07.89 - Other chest pain Category: Medical Plan: Primarily?posterior?chest?wall?discomfort?and?myalgias. Elevated?CRP?at?last?check. Will?continue?evaluation?with?additional?lab?work?including?testosterone,?thyroi d Orders: Orders Testosterone, Free/Total Today M79.10 - Myalgia, unspecified site, R53.83 - Other fatigue TSH reflex Free T4 Today M79.10 - Myalgia, unspecified site, Z00.00 - Encounter for general adult medical examination without abnormal findings KEO Reflex Titer and Pattern Today M79.10 - Myalgia, unspecified site Comprehensive Met. Panel Today M79.10 - Myalgia, unspecified site Creatine Kinase Total Today M79.10 - Myalgia, unspecified site Referrals Sleep Medicine Referral G47.30 - Sleep apnea, unspecified, R63.5 - Abnormal weight gain
[2024-08-05 09:51] VITALS: BP 100/70; PULSE 94; RESP 12; TEMP 36.6; O2SAT 95; BMI 39.1
== END 2024-08-05 10:19 | disposition home or self-care (01) ==
PROVIDERS: PCP Family Medicine; Visit Provider Family Medicine
DX: F90.9 Attention-deficit hyperactivity disorder, unspecified type (principal); G47.30 Sleep apnea, unspecified; R07.89 Other chest pain

== ENCOUNTER → 2024-08-05 09:36 | Outpatient (BNVA) | payer OTHER, SELFPAY | PROVIDERS: PCP Family Medicine; Visit Provider Family Medicine | DX: F90.9 Attention-deficit hyperactivity disorder, unspecified type (principal); G47.30 Sleep apnea, unspecified; R07.89 Other chest pain | CPT/HCPCS: 96127 ==

== ENCOUNTER 2024-09-03 07:47 | Outpatient (REF) | payer OTHER, SELFPAY ==
[2024-09-03 12:24] LABS: TSH reflex Free T4 1.32 uIU/mL (0.32-4.0)
[2024-09-03 12:35] LABS: Anion Gap 12 (12-20)
[2024-09-03 12:39] LABS: Alanine Aminotransferase 29 U/L (0-40); Albumin Level 4.3 g/dL (3.5-5.0); Alkaline Phosphatase 67 U/L (39-117); Aspartate Amino Transferase 26 U/L (5-37); Bilirubin Total 0.7 mg/dL (0.0-1.0); Blood Urea Nitrogen 14 mg/dL (9-16); Calcium 9.6 mg/dL (8.4-10.2); Carbon Dioxide 25 mmol/L (22-29); Chloride 109 mmol/L (96-108); Estimated Glomerular Filt Rate > 60; Glucose Random 100 mg/dL (60-115); Potassium 4.1 mmol/L (3.3-5.1); Sodium 142 mmol/L (135-145); Total Protein 7.1 g/dL (6.5-8.0)
[2024-09-08 10:43] LABS: Anti Nuclear Antibody Screen NEGATIVE (NEGATIVE)
[2024-09-09 22:38] LABS: Testosterone, Free 65.4 pg/mL (35.0-155.0); Testosterone, Total 406 ng/dL (250-1100)
== END 2024-09-03 07:48 | disposition home or self-care (01) ==
LOC: HO.WFDLDS 07:47
PROVIDERS: Visit Provider Family Medicine
DX: Z00.00 Encounter for general adult medical examination without abnormal findings (principal); M79.10 Myalgia, unspecified site; R53.83 Other fatigue
CPT/HCPCS: 36415; 80053; 82550; 84402; 84403; 84443; 86038

== ENCOUNTER 2024-10-04 10:34 | Outpatient (AMB) | payer OTHER, SELFPAY ==
--- NOTE | 2024-10-04 10:45 | A.OFFPC_ITS ---
Vital Signs 10/04/24 10:46 Height 5 ft 8 in Weight 265 lb BMI 40.3 BP 116/70 Blood Pressure Location Rt brachial Position Sitting Respiration 16 Pulse 98 Pulse Source Pulse Oximeter Temp 97.9 F Temp Source Oral Pulse Oximetry (%) 98 Oxygen Delivery Method Room Air Intake Visit Reasons: f/u chest discomfort, chronic conditions Intake Note: lab review and chest discomfort Allergies No Known Allergies Allergy (Verified 10/04/24 10:46) Tobacco use date assessed: 02/18/24 Dental Screening Dental Screen Date: 02/18/24 HPI f/u chest discomfort, chronic conditions HPI Details 39 y/o male presents to f/u chest discom fort, chronic conditions such as fatigue and myalgias. Labs drawn 09/03/24. Reviewed labs with pt. TSH levels are fine. Testosterone levels 406 ng/dL and is within normal range. Reports ongoing chest discomfort associated with coughing. Denies any chest pain on exertion. Notes FHx of rheumatoid arthritis. [facility] Surgical History History of wisdom tooth extraction History of colonoscopy History of appendectomy History of knee surgery Social History Household Members: Children Household Members Other:: Dog, roommates Housing: House Are you a primary child care cook to a significant other at home: No Do you presently have visiting nurse or other home services: No 75 years or older and lives alone: No Alcohol intake: never Patient Tobacco Use Status: Never used Tobacco e-Cigarette/Vaping Use: Never Used Second Hand Smoke Exposure: No service: No Current occupational status: employed 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 1. Little interest or pleasure in doing things: not at all 2. Feeling down, depressed, or hopeless: not at all 3. Trouble falling or staying asleep, or sleeping too much: not at all 4. Feeling tired or having little energy: not at all 5. Poor appetite or overeating: not at all 6. Feeling bad about yourself - or that you are a failure or have let yourself or your family down: not at all 7. Trouble concentrating on things, such as reading the newspaper or watching television: not at all 8. Moving or speaking so slowly that other people could have noticed. Or the opposite - being so fidgety or restless that you have been moving around a lot more than usual: not at all 9. Thoughts that you would be better off or of hurting yourself in some way: not at all Total score: 0 Source: Developed by Drs. Viktor Franz, Ashley Jacobsen, Miguel Crocker and colleagues, with an educational ayaka from [employer]. Thrive Questionnaire Date Thrive assessed: 02/18/24 I am a: Patient What is your living situation today?: I have a steady place to live Within the past 12 months, did the food you bought not last and you didn't have the money to get more?: I choose not to answer this question Within the past 12 months, did you worry whether your food would run out before you got money to buy more?: I choose not to answer this question Do you have trouble paying for medicines?: I choose not to answer this question Do you have trouble getting transportation to medical appointments?: I choose not to answer this question Do you have trouble paying your heating and electricity bill?: I choose not to answer this question Do you have trouble taking care of your child, family member or friend?: I choose not to answer this question Do you have trouble with day-to-day activities such as bathing, preparing meals, shopping, managing finances, etc.?: I choose not to answer this question Are you currently unemployed and looking for a job?: I choose not to answer this question Are you interested in more education?: I choose not to answer this question Please select the resources that you would like help with: None Currently or been in a relationship where the following occur: I choose not to answer THRIVE Score: 0 AUDIT C Alcohol Use Questionnaire (AUDIT-C) 1. How often do you have a drink containing alcohol?: Never Total Score: 0 ABDIEL-7 AMB Questionnaire ABDIEL-7 Date ABDIEL - 7 assessed: 08/05/24 Feeling nervous, anxious, or on edge: 0 = Not at all Not being able to stop or control worryin = Not at all Worrying too much about different things: 0 = Not at all Trouble relaxin = Not at all Being so restless that it is hard to sit still: 0 = Not at all Becoming easily annoyed or irritable: 0 = Not at all Feeling afraid as if something awful might happen: 0 = Not at all Total ABDIEL-7 score (0-4 normal; 5-9 mild; 10-14 moderate; 15-21 severe): 0 Source: Developed by Drs. Viktor Franz, Ashley Jacobsen, Miguel Crocker and colleagues, with an educational ayaka from [employer]. Review of Systems Const Denies chills, Denies fatigue, Denies fever(s), Denies headache(s) and Denies weakness ENT Denies dizziness and Denies headache(s) Card Denies dyspnea Resp Denies cough, Denies dyspnea, Denies wheezing and Denies other (shortness of breath) Musc Details: Chest discomfort Denies numbness and Denies tingling Neuro Denies dizziness, Denies headache(s), Denies numbness, Denies tingling and Denies weakness Psych Denies anxiety and Denies depression Endo Denies fatigue Aller/Immun Denies wheezing Physical exam (Primary Care) Vital Signs: Last Vital Signs Temp 97.9 F 10/04/24 10:46 Pulse 98 10/04/24 10:46 Resp 16 10/04/24 10:46 BP 116/70 10/04/24 10:46 Pulse Ox 98 10/04/24 10:46 Oxygen Delivery Method Room Air 10/04/24 10:46 BMI result Body Mass Index 40.3 Tobacco/Smoking Status: Tobacco use Status Tobacco use date assessed 02/18/24 10/04/24 10:47 Patient Tobacco Use Status Never used Tobacco 10/04/24 10:47 e-Cigarette/Vaping Use Never Used 10/04/24 10:47 PHQ-9: PHQ-9 Score PHQ-9: Total score 0 10/04/24 10:47 Thrive Assessment: Date of Thrive Assessment Date Thrive assessed 02/18/24 10/04/24 10:47 Currently or been in a relationship where the following occur: I choose not to answer Const General: well developed; No acute distress Nutritional Appearance: well nourished Orientation/consciousness: patient oriented x3 [facility] Head: Yes normocephalic and Yes atraumatic Eyes General: appearance normal, both eyes and all related structures Pupils: Equal, round and reactive pupils present EOM: EOMs intact bilaterally Resp Effort & Inspection: normal respiratory effort Neuro General: patient oriented x3 and gait normal Cranial nerves: Yes Equal, round and reactive pupils present Psych Affect: normal affect Coding Level of Care Code Est Pt Level 4 (98974) Diagnoses Chest discomfort R07.89 Fatigue R53.83 Myalgia M79.10 Abnormal EKG R94.31 Assessment & Plan Assessment & Plan (1) Chest discomfort: Code(s): R07.89 - Other chest pain Category: Medical Plan: Ongoing?chest?discomfort?primarily?associated?with?deep?inspiration?and?cough EKG: ?Normal?sinus?rhythm,?normal?axis,?no?hypertrophy,?no?ST-T?wave?changes,?Q-wave? at?AVF?but?non?contiguous. Doubt infarction. Will check Stress Test. Will?check?chest?x-ray (2) Fatigue: Code(s): R53.83 - Other fatigue Category: Medical Plan: Elevated?CRP?but?negative?sed?rate?when?checked. Will?repeat?these.??He?also?notes?a?family?history?of?rh eumatoid?arthritis?so?checking?rheumatoid?factor Recent?labs?including?thyroid?stimulating?hormone?and?testosterone?levels?are?ok ay Had?referred?him?to?Sleep?Medicine?but?he?still?has?not?had?an?appointment?made. Printed?out?referral?and?gave?him?phone?number. (3) Myalgia: Code(s): M79.10 - Myalgia, unspecified site Category: Medical Plan: As?above,?checking?labs.??May?need?referral?to?Rheumatology?if?positive. (4) Abnormal EKG: Code(s): R94.31 - Abnormal electrocardiogram [ECG] [EKG] Category: Medical Plan: Stress?test?ordered Will?follow-up?in?1-2?weeks Advised?him?to?discontinue?exertion?if?he?is?having?chest?pain?and?to?seek?medic al?attention?if?pain?is?not?stopping?rest. Orders: Orders XR chest 2V Today R07.89 - Other chest pain Basic Metabolic Panel Today M79.10 - Myalgia, unspecified site, Z00.00 - Encounter for general adult medical examination without abnormal findings Complete Blood Count Auto Diff Today M79.10 - Myalgia, unspecified site, Z00.00 - Encounter for general adult medical examination without abnormal findings AMB EKG-In Office Today R07.89 - Other chest pain CRP High Sensitivity Today M79.10 - Myalgia, unspecified site Erythrocyte Sedimentation Rate Today M79.10 - Myalgia, unspecified site Rheumatoid Factor Today M79.10 - Myalgia, unspecified site CA stress test Today R07.89 - Other chest pain, R53.83 - Other fatigue
[2024-10-04 10:46] VITALS: BP 116/70; PULSE 98; RESP 16; TEMP 36.6; O2SAT 98; BMI 40.3
== END 2024-10-04 11:28 | disposition home or self-care (01) ==
PROVIDERS: PCP Family Medicine; Visit Provider Family Medicine
DX: R07.89 Other chest pain (principal); R53.83 Other fatigue; M79.10 Myalgia, unspecified site; R94.31 Abnormal electrocardiogram [ECG] [EKG]

== ENCOUNTER → 2024-11-05 07:57 | Outpatient (REF) | payer OTHER, SELFPAY ==
--- NOTE | 2024-11-05 08:00 | CA_ITS ---
Acquisition Time: 2024-11-05 08:11:47 Total Exercise Time: 00:09:00 Test Indications: Fatigue CP Medications: Protocol: PRETTY Max HR: 164 BPM 89% of Pred: 183 BPM Max BP: 144/070 mmHG Max Work Load: 10.1 METS Exercise Stress Test with exercise 9 mins of Pretty Protocol, achieving 88% MPHR, without any anginal symptoms, without any arrythmias, with normotensive response to exercise. Without EKG chnages meeting criteria for ischemia. In recovery, HR remianed in the 120s, improved slowly after hydrating and laying supine. Test reviewed with Dr. Green. Referred By: Ramiro Edgar Overread By: Olvin Serra
== END ==
LOC: HO.CARD 07:57
PROVIDERS: PCP Family Medicine; Visit Provider Family Medicine
DX: R07.89 Other chest pain (principal); R53.83 Other fatigue
CPT/HCPCS: 93017

== ENCOUNTER → 2024-11-05 08:00 | Outpatient (BNV) | payer OTHER, SELFPAY | PROVIDERS: PCP Family Medicine | DX: R07.89 Other chest pain (principal); R53.83 Other fatigue | CPT/HCPCS: 93016; 93018 ==

== ENCOUNTER 2025-03-07 10:08 | Outpatient (AMB) | payer OTHER, SELFPAY ==
--- NOTE | 2025-03-07 10:15 | A.OFFPC_ITS ---
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 No recent labs to review. He is on Adderall 30mg. He reports ongoing plantar fasciitis. He reports ongoing chest discomfort. HPI Comments History of Present Illness Details Documentation assistance for Ramiro Edgar MD, was provided by Yariel Grimaldo,? [employer] on 03/07/2025 at 10:55 AM EST. I, Dr. Edgar, have read, observed, and verified documentation. ?? [facility] Surgical History History of wisdom tooth extraction History of colonoscopy History of appendectomy History of knee surgery Social History Household Members: Children Household Members Other:: Dog, roommates Housing: House Are you a primary home care attendant to a significant other at home: No Do you presently have visiting nurse or other home services: No 75 years or older and lives alone: No Alcohol intake: never Patient Tobacco Use Status: Never used Tobacco e-Cigarette/Vaping Use: Never Used Second Hand Smoke Exposure: No service: No Current occupational status: employed 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 1. Little interest or pleasure in doing things: not at all 2. Feeling down, depressed, or hopeless: not at all 3. Trouble falling or staying asleep, or sleeping too much: not at all 4. Feeling tired or having little energy: not at all 5. Poor appetite or overeating: not at all 6. Feeling bad about yourself - or that you are a failure or have let yourself or your family down: not at all 7. Trouble concentrating on things, such as reading the newspaper or watching television: not at all 8. Moving or speaking so slowly that other people could have noticed. Or the opposite - being so fidgety or restless that you have been moving around a lot more than usual: not at all 9. Thoughts that you would be better off or of hurting yourself in some way: not at all Total score: 0 Depression Screening Interpretation: Negative Depression Screening Done: Yes 04201 - PHQ-9 Billing: Yes Source: Developed by Drs. Viktor Franz, Ashley Jacobsen, Miguel Crocker and colleagues, with an educational ayaka from [employer]. Thrive Questionnaire Date Thrive assessed: 03/07/25 I am a: Patient What is your living situation today?: I have a steady place to live Within the past 12 months, did the food you bought not last and you didn't have the money to get more?: I choose not to answer this question Within the past 12 months, did you worry whether your food would run out before you got money to buy more?: I choose not to answer this question Do you have trouble paying for medicines?: I choose not to answer this question Do you have trouble getting transportation to medical appointments?: I choose not to answer this question Do you have trouble paying your heating and electricity bill?: I choose not to answer this question Do you have trouble taking care of your child, family member or friend?: I choose not to answer this question Do you have trouble with day-to-day activities such as bathing, preparing meals, shopping, managing finances, etc.?: I choose not to answer this question Are you currently unemployed and looking for a job?: I choose not to answer this question Are you interested in more education?: I choose not to answer this question Please select the resources that you would like help with: None Currently or been in a relationship where the following occur: I choose not to answer THRIVE Score: 0 ABDIEL-7 AMB Questionnaire ABDIEL-7 Date ABDIEL - 7 assessed: 03/07/25 Feeling nervous, anxious, or on edge: 0 = Not at all Not being able to stop or control worryin = Not at all Worrying too much about different things: 0 = Not at all Trouble relaxin = Not at all Being so restless that it is hard to sit still: 0 = Not at all Becoming easily annoyed or irritable: 0 = Not at all Feeling afraid as if something awful might happen: 0 = Not at all Total ABDIEL-7 score (0-4 normal; 5-9 mild; 10-14 moderate; 15-21 severe): 0 Source: Developed by Drs. Viktor Franz, Ashley Jacobsen, Miguel Crocker and colleagues, with an educational ayaka from [employer]. ABDIEL-7 Assessment Billing ABDIEL-7 Assessment Tool: ABDIEL-7 Assessment 39202 ACT Questionnaire In the past 4 weeks, how much of the time did your asthma keep you from getting as much done at work, school or at home?: None of the time Score: 5 Review of Systems Const Denies chills, Denies fatigue, Denies fever(s), Denies headache(s) and Denies weakness Eyes Denies change in vision ENT Denies dizziness, Denies headache(s), Denies hearing loss, Denies nasal congestion, Denies sinus pain, Denies sinus pressure and Denies sore throat Card Denies chest pain, Denies lightheadedness, Denies dyspnea and Denies other (palpitations) Resp Denies cough, Denies dyspnea and Denies wheezing GI Denies abdominal pain, Denies melena, Denies hematochezia, Denies change in bowel habits, Denies dyspepsia and Denies nausea Denies hematuria and Denies dysuria Musc Denies abnormal gait, Denies myalgias, Denies arthralgias, Denies numbness and Denies tingling Skin/Breast Denies rash, Denies unusual bruising and Denies wounds Neuro Denies abnormal gait, Denies dizziness, Denies headache(s), Denies memory loss, Denies numbness, Denies Sensory deficit (Neuro), Denies tingling and Denies weakness Psych Denies anxiety, Denies depression and Denies memory loss Endo Denies cold intolerance, Denies fatigue, Denies heat intolerance, Denies polydipsia and Denies polyuria Danilo/Lymph Denies easy bleeding and Denies easy bruising Aller/Immun Denies wheezing Physical exam (Primary Care) Vital Signs: Last Vital Signs Temp 98.2 F 03/07/25 10:21 Pulse 101 H 03/07/25 10:21 Resp 14 03/07/25 10:21 BP 124/64 03/07/25 10:21 Pulse Ox 96 03/07/25 10:21 Oxygen Delivery Method Room Air 03/07/25 10:21 BMI result Body Mass Index 38.2 Tobacco/Smoking Status: Tobacco use Status Tobacco use date assessed 02/18/24 03/07/25 10:18 Patient Tobacco Use Status Never used Tobacco 03/07/25 10:18 e-Cigarette/Vaping Use Never Used 03/07/25 10:18 PHQ-9: PHQ-9 Score PHQ-9: Total score 0 03/07/25 10:26 Depression Screening Interpretation: Negative Thrive Assessment: Date of Thrive Assessment Date Thrive assessed 03/07/25 03/07/25 10:18 Currently or been in a relationship where the following occur: I choose not to answer Const General: no acute distress, well developed, alert and awake Nutritional Appearance: well nourished Orientation/consciousness: patient oriented x3 HENMT Head: Yes normocephalic and Yes atraumatic Ears: hearing grossly normal bilaterally and TM's normal bilaterally General nose exam: Normal external nose present and Normal nares present Mouth: Normal oral and palatal mucosa present and moist mucous membranes Teeth and gingiva: dentition normal Throat: Yes posterior oropharynx normal Eyes General: appearance normal, both eyes and all related structures Pupils: Equal, round and reactive pupils present and Pupil accommodation reflex normal EOM: EOMs intact bilaterally Neck Neck: Yes normal visual inspection, Yes no lymphadenopathy and Yes trachea midline Thyroid: Thyroid normal Carotids: no bruits Lymphatic: no lymphadenopathy noted Chest Chest palpation & inspection: normal inspection of the chest Resp Effort & Inspection: normal respiratory effort Auscultation: clear to auscultation bilaterally Cardio Rate: regular rate Rhythm: regular rhythm Heart sounds: S1 normal heart sound present, S2 normal heart sound present, no gallops, no murmurs and no rubs Bruits: no abdominal aortic bruits and no carotid bruits GI Palpation (GI): No Abdominal aortic bruit present, Soft to palpation, nontender, No hepatosplenomegaly present and No Rebound tenderness present Auscultation: normal bowel sounds General: Yes no CVA tenderness Back/Spine/Pelvis Back: no CVA tenderness Cervical Spine: cervical ROM normal and No Cervical spine tenderness Thoracic/Lumbar Spine: thoraco-lumbar ROM normal, No pain with thoraco-lumbar ROM, No thoracic spinal tenderness and No lumbar spinal tenderness Skin Lesions: no lesions Rashes: no rashes Trauma: no lacerations or abrasions Wounds: no wounds Nails: normal Neuro General: patient oriented x3 Cranial nerves: Yes Equal, round and reactive pupils present Cognition (Neuro): normal cognition Gait exam (Neuro): Normal gait present Motor exam (neuro): 5/5 motor strength present throughout Sensory Exam: No Sensory deficit (Neuro) Deep tendon reflexes (DTR's): Right patellar reflex intensity grade: 2+ and Left patellar reflex intensity grade: 2+ Extrem General: Yes normal to inspection and No edema Psych Appearance: grossly normal Affect: normal affect Attitude: cooperative Thought process: Normal thought process present Coding Level of Care Code Est Pt Level 3 (35062) Est Pt Prev Care 18-39y(20046) Diagnoses Adult general medical exam Z00.00 ADHD F90.9 Plantar fasciitis M72.2 Chest discomfort R07.89 Additional Codes ABDIEL-7 Assessment Billing - ABDIEL-7 Assessment Tool: ABDIEL-7 Assessment 35538 ([id number]) PHQ-9 - 17765 - PHQ-9 Billing: Yes ([id number]) Assessment & Plan Assessment & Plan (1) Adult general medical exam: Code(s): Z00.00 - Encounter for general adult medical examination without abnormal findings Category: Medical Plan: 40-year-old?male?presents?for?complete?physical?exam (2) ADHD: Code(s): F90.9 - Attention-deficit hyperactivity disorder, unspecified type Category: Medical Plan: Patient's symptoms?are?well?controlled?with?Adderall. 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 (3) Plantar fasciitis: Code(s): M72.2 - Plantar fascial fibromatosis Category: Medical Plan: Ongoing,?chronic?plantar?fasciitis He?says?the?exercises?and?other?interventions?that?he?has?had?helped?to?control? his?symptoms?but?do?not?resolve?them. He?has?found?an?orthopedic?specialist?he?would?lik e?a?referral?to?and?I?made?this?today. (4) Chest discomfort: Code(s): R07.89 - Other chest pain Category: Medical Plan: Ongoing?chest?discomfort. Chest?x-ray?and?stress?test?were?reassuring. Chest?x-ray?was?ordered?in?October?but?he?has?not?gotten ?this?done?yet.??He?will?get?this?done?and?we?can?follow-up?together. He?says?that?his?mom is?interested?in?paying?tlm-gn-ihmpkq?for?a?scan?though?he?does?not?know?what?sc an. If?chest?x-ray?is?negativ e?and?he?is?still?having?symptoms,?will?refer?to?Cardiology. Orders: Orders Comprehensive [place]. Panel Fast Today Z00.00 - Encounter for general adult medical examination without abnormal findings Lipid Panel Today Z00.00 - Encounter for general adult medical examination without abnormal findings Microalbumin, Random (w Creat) Today I10 - Essential (primary) hypertension Prostate Specific Antigen Scr Today Z12.5 - Encounter for screening for malignant neoplasm of prostate TSH reflex Free T4 Today Z00.00 - Encounter for general adult medical examination without abnormal findings UA CC w/rflx Micro + Cult Today Z00.00 - Encounter for general adult medical examination without abnormal findings Referrals Orthopedics Referral M72.2 - Plantar fascial fibromatosis, M79.671 - Pain in right foot, M79.672 - Pain in left foot Medications: Refilled dextroamphetamine-amphetamine 30 mg ER (Adderall XR) MassPat Verified. Partial Fill upon patient request. 30 mg PO QAM 30 days 30 caps 0RF F90.9 - Attention-deficit hyperactivity disorder, unspecified type
[2025-03-07 10:21] VITALS: BP 124/64; PULSE 101; RESP 14; TEMP 36.8; O2SAT 96; BMI 38.2
--- OUTSIDE RECORDS SUMMARY | 2025-03-07 11:23 | XMS_ITS | Clinical Summary ---
Author Organization [facility] Address [address] [place] [id number] Care Team Providers Care Dedicated Owner Operator Name Role Phone Ramiro Edgar MD Primary Care Provider [phone] Allergies No known active allergies Medications amphetamine-dext roamphetamine (ADDERALL) 10 mg tablet Take 10 mg by mouth if needed. Active Active Problems No known active problems Family History Medical History Relation Comments No Known Problems Mother No Known Problems Sister Relation Status Comments Mother Alive Sister Alive Social History Tobacco Use Types Packs/Day Years Used Date Smoking Tobacco: Never Smokeless Tobacco: Never Alcohol Use Standard Drinks/Week Comments Yes 1 (1 standard drink = 0.6 oz pur e alcohol) PHQ-2 Answer Date Recorded Depression Risk (PHQ2) Score 0 Sex and Gender Information Value Date Recorded Sex Assigned at Not on file Legal Sex Male 3:38 PM [facility] Gender Identity Not on file Sexual Orientation Not on file Last Filed Vital Signs Vital Sign Reading Time Taken Comments Blood Pressure 126/80 11/23/2021 11:12 AM EST Pulse 117 11/23/2021 11:12 AM EST Temperature 36.7 ??C (98.1 ??F) 11/23/2021 11:[address] Respiratory Rate 16 11/23/2021 11:12 AM EST Oxygen Saturation 100% 11/23/2021 11:12 AM EST Inhaled Oxygen Concentration - - Weight 111 kg (244 lb 4 oz) 11/23/2021 11:12 AM EST Height 172.7 cm (5' 8 ) 11/23/2021 11:12 AM EST Body Mass Index 37.14 11/23/2021 11:12 AM EST Plan of Treatment Health Maintenance Due Date Last Done Comments Hepatitis C Screening 1987 PHQ-9 Depression Screen 1999 Complete Annual HRA 2005 ABDIEL-7 Anxiety Screen 2005 DTaP,Tdap,and Td Vaccines (1 - Tdap) 2006 Annual Preventive Exam 02/05/2022 02/05/2021, 2018 COVID-19 Vaccine ( - 2023-25 season) 2024 Influenza Vaccine (Season Ended) 2025 RSV Vaccine (SCDM) (1 - 1-dose 75+ series) [address] [place] [id number] [employer] Care Teams Dedicated Owner Operator Relationship Specialty Start Date End Date Ramiro Edgar MD [address] [place] [address] PCP - General Internal Medicine 11/23/21
== END 2025-03-07 10:55 | disposition home or self-care (01) ==
LOC: HO.HMCFM 10:08
PROVIDERS: PCP Family Medicine; Visit Provider Family Medicine
DX: Z00.00 Encounter for general adult medical examination without abnormal findings (principal); F90.9 Attention-deficit hyperactivity disorder, unspecified type; M72.2 Plantar fascial fibromatosis; R07.89 Other chest pain

== ENCOUNTER → 2025-03-07 10:08 | Outpatient (BNVA) | payer OTHER, SELFPAY | PROVIDERS: PCP Family Medicine; Visit Provider Family Medicine | DX: Z00.00 Encounter for general adult medical examination without abnormal findings (principal); F90.9 Attention-deficit hyperactivity disorder, unspecified type; M72.2 Plantar fascial fibromatosis; R07.89 Other chest pain; Z79.899 Other long term (current) drug therapy | CPT/HCPCS: 96127 ==

== ENCOUNTER 2025-04-01 07:34 | Outpatient (REF) | payer OTHER, SELFPAY ==
[2025-04-01 11:24] LABS: Appearance Urine Turbid; Color Urine Yellow; Glucose Urine UA Negative (Negative); Leukocyte Esterase Urine Negative (Negative); Nitrite Urine Negative (Negative); PH 5.5 (5.0-9.0); Specific Gravity - Urine 1.025 (1.005-1.025); Urine Blood Negative (Negative); Urine Ketones Negative (Negative); Urine Protein Negative (Neg-Trace)
[2025-04-01 11:28] LABS: MANUAL DIFF FLAG NO
[2025-04-01 11:53] LABS: Basophils Percent Auto 0.5 % (0-2); Eosinophils Absolute Auto 0.1 X10*3/uL (0.0-0.4); Hematocrit 44.1 % (42.0-52.0); Imm Gran Abs Auto 0.02 X10*3/uL (0.00-0.03); Imm Gran Pct Auto 0.3 % (0.0-0.4); Lymphocytes Absolute Auto 1.7 X10*3/uL (1.2-4.9); Lymphocytes Percent Auto 29.8 % (20-40); Mean Corpuscular Hemoglobin 31.2 pg (27.0-33.0); Mean Corpuscular Volume 91.7 fL (80.0-98.0); Mean Platelet Volume 10.1 fL (9.4-12.4); Monocytes Absolute Auto 0.6 X10*3/uL (0.1-1.2); Monocytes Percent Auto 9.6 % (2-11); Neutrophils Absolute Auto 3.4 x10*3/uL (2.0-8.3); Neutrophils Percent Auto 58.8 % (45-73); Platelet Count 220 X10*3/uL (160-400); Red Blood Count 4.81 X10*6/uL (4.60-5.80); Red Cell Distribution Width 12.8 % (11.0-16.0); White Blood Count 5.8 X10*3/uL (4.8-10.8)
[2025-04-01 12:04] LABS: Microalbum/Creatinine Ratio Ur 3.1 ug/mg cr (<30)
[2025-04-01 12:32] LABS: Erythrocyte Sedimentation Rate 5 MM/HR (0-15)
[2025-04-01 12:36] LABS: Rheumatoid Factor < 13.0 IU/mL (<15.0)
[2025-04-01 12:47] LABS: Prostate Specific Antigen Scr 0.47 ng/mL (<0.05-4.0)
[2025-04-01 12:55] LABS: TSH reflex Free T4 1.57 uIU/mL (0.32-4.0)
[2025-04-01 13:00] LABS: Anion Gap 12 (12-20)
[2025-04-01 13:05] LABS: Alanine Aminotransferase 30 U/L (0-40); Albumin Level 4.3 g/dL (3.5-5.0); Alkaline Phosphatase 82 U/L (39-117); Aspartate Amino Transferase 30 U/L (5-37); Bilirubin Total 0.6 mg/dL (0.0-1.0); Blood Urea Nitrogen 17 mg/dL (9-16); Carbon Dioxide 23 mmol/L (22-29); Chloride 110 mmol/L (96-108); Cholesterol 153 mg/dL (<200); Estimated Glomerular Filt Rate > 60; Glucose Fasting 101 mg/dL (60-99); Glucose Random 100 mg/dL (60-115); HDL Cholesterol 41 mg/dL (>40); LDL Cholesterol Calculated 100 mg/dL (<100); Sodium 141 mmol/L (135-145); Triglycerides 61 mg/dL (<150)
[2025-04-04 08:29] LABS: CRP High Sensitivity 2.4 mg/L
== END 2025-04-01 07:35 | disposition home or self-care (01) ==
LOC: HO.WFDLDS 07:34
PROVIDERS: Visit Provider Family Medicine
DX: Z00.00 Encounter for general adult medical examination without abnormal findings (principal); M79.10 Myalgia, unspecified site; Z12.5 Encounter for screening for malignant neoplasm of prostate; I10 Essential (primary) hypertension
CPT/HCPCS: 36415; 80048; 80053; 80061; 81003; 82043; 82570; 84153; 84443; 85025; 85652; 86141; 86431

== ENCOUNTER 2025-04-04 07:02 | Outpatient (REF) | payer OTHER, SELFPAY ==
--- NOTE | ~2025-04-04 | XR_ITS ---
CLINICAL HISTORY: R07.89 - Other chest pain 2 view chest x-ray. Comparison: None Findings: The lungs are adequately expanded. No focal consolidation. No effusion or pneumothorax. Cardiac and mediastinal contours are within normal limits. No acute osseous abnormality Impression: No acute process. This document has been electronically signed by: Jose Patel MD on 04/04/2025 07:56:32
--- OUTSIDE RECORDS SUMMARY | 2025-04-04 07:04 | XMS_ITS ---
Author Name [facility] Organization Unknown History of Medication Use Medication Directions Dispensed Refills Start Date End Date Stat Adderall XR 20 mg capsule,extended release TAKE 1 CAPSULE BY MOUTH EVERY DAY FOR 30 DAYS active ciprofloxacin 0.3 % eye drops LOCATION: RIGHT EYE. APPLY ONE DROP IN AFFECTED EYE 4 TIMES A DAY FOR FIVE DAYS. active clindamycin HCl 300 mg capsule TAKE 1 CAPSULE BY MOUTH EVERY 8 HOURS FOR 7 DAYS active dextroamphetamine-amph etamine ER 30 mg 24hr capsule,extend release TAKE 1 CAPSULE BY MOUTH EVERY MORNING active oxycodone 5 mg tablet TAKE 1 TABLET BY MOUTH EVERY 6 HOURS NEEDED FOR PAIN FOR 3 DAYS active Problems Problem Status Onset Date Problem Type Date of Resoluti on Source Bilateral plantar fasciitis active 2025-03-13 ProblemAct ENS_AONECT Encounters Encounter Type Encounter Reason Primary Diagnosis Location Date Ambulatory [facility] 04/01/2025 Ambulatory [facility] 03/22/2025 Ambulatory [facility] 03/14/2025 Ambulatory [facility] 03/10/2025 Ambulatory [facility] 03/10/2025 Ambulatory [facility] 03/10/2025 Ambulatory [facility] 03/10/2025 Ambulatory [facility] 03/09/2025
== END 2025-04-04 07:03 | disposition home or self-care (01) ==
LOC: HO.XRAY 07:02
PROVIDERS: PCP Family Medicine; Visit Provider Family Medicine
DX: R07.89 Other chest pain (principal)
CPT/HCPCS: 71046

== ENCOUNTER → 2025-04-04 07:06 | Outpatient (BNV) | payer OTHER, SELFPAY | PROVIDERS: PCP Family Medicine; Visit Provider Radiology Vascular & Interventional Radiology | DX: R07.89 Other chest pain (principal) | CPT/HCPCS: 71046 ==

== ENCOUNTER → 2025-04-04 13:31 | Outpatient (AMB) | payer OTHER, SELFPAY ==
--- NOTE | 2025-04-04 13:29 | MHC.PC.OV ---
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 Chest?x-ray?was?negative He?has?had?prior?studies?including?a?stress Test?an?EKG?which?were?reassuring He?notes?that after?changing?jobs?is?chest?discomfort?is?improving Also?followed?by?sleep?medicine?in?the?working?getting?him?to?tolerate?the?CPAP device [facility] Surgical History History of wisdom tooth extraction History of colonoscopy History of appendectomy History of knee surgery Social History Household Members: Children Household Members Other:: Dog, roommates Housing: House Are you a primary personal care home administrator to a significant other at home: No Do you presently have visiting nurse or other home services: No 75 years or older and lives alone: No Alcohol intake: never Patient Tobacco Use Status: Never used Tobacco e-Cigarette/Vaping Use: Never Used Second Hand Smoke Exposure: No service: No Current occupational status: employed 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 Viktor Franz, Ashley Jacobsen, Miguel Crocker and colleagues, with an educational ayaka from [employer]. Review of Systems Const Denies chills, Denies fatigue, Denies fever(s), Denies headache(s) and Denies weakness ENT Denies dizziness and Denies headache(s) Card Denies chest pain, Denies lightheadedness, Denies dyspnea and Denies other (Palpitations) Resp Denies cough, Denies dyspnea, Denies wheezing and Denies other ( shortness of breath) Musc Denies numbness and Denies tingling Neuro Denies dizziness, Denies headache(s), Denies numbness, Denies tingling, Denies paresthesias and Denies weakness Psych Denies anxiety and Denies depression Endo Denies fatigue Aller/Immun Denies wheezing Physical exam (Primary Care) Tobacco/Smoking Status: Tobacco use Status Tobacco use date assessed 02/18/24 04/04/25 13:30 Patient Tobacco Use Status Never used Tobacco 04/04/25 13:30 e-Cigarette/Vaping Use Never Used 04/04/25 13:30 Thrive Assessment: Date of Thrive Assessment Date Thrive assessed 03/07/25 04/04/25 13:30 Telehealth Telehealth Telehealth Platform: Telephone Location of provider rendering services: practice address Location of patient: address on file Patient Identification confirmed using: Name, : Yes Telehealth method: voice only Patient verbally consented to treatment: Yes Patient verbally consented to billing insurance company: Yes Patient informed of any privacy concerns related to visit: Yes Minutes spent on Phone/Video with Pt.: 9 Coding Level of Care Code Tele Est Pt Level 2 (67982) Diagnoses Obesity (BMI 30-39.9) E66.9 Chest discomfort R07.89 Sleep apnea G47.30 Elevated blood sugar R73.9 Assessment & Plan Assessment & Plan (1) Obesity (BMI 30-39.9): Code(s): E66.9 - Obesity, unspecified Category: Medical Plan: Patient?has?been?working?on?weight?loss. Gained?some?weight?back?on?a?vacation Encouraged?diet?exercise?and?weight?loss (2) Chest discomfort: Code(s): R07.89 - Other chest pain Category: Medical Plan: This?has?been?improving?with?change?in?his?job Prior?stress?test?was?negative Recent?chest?x-ray?was?normal Prior?EKG?was?normal Does?not?appear?to?be?cardiac?in?nature.?? Improving?and?he?will?let?me?know?if?there?are?any?changes. (3) Sleep apnea: Code(s): G47.30 - Sleep apnea, unspecified Category: Medical Plan: Followed?by?sleep?medicine Having?difficulty?with?nasal?pillows?and?will?be?switching?to?a?fullface?mask Follow-up?with?sleep?medicine?as?recommended (4) Elevated blood sugar: Code(s): R73.9 - Hyperglycemia, unspecified Category: Medical Plan: Will?recheck?blood?sugar?and?A1c?at?next?lab?draw Plan Mildly?elevated?LDL?cholesterol Will?recheck?brought?a?next?visit Orders: Orders Hemoglobin A1c Today R73.01 - Impaired fasting glucose, R73.9 - Hyperglycemia, unspecified Comprehensive [place]. Panel Fast Today R73.9 - Hyperglycemia, unspecified, Z00.00 - Encounter for general adult medical examination without abnormal findings Lipid Panel Today R73.9 - Hyperglycemia, unspecified, Z00.00 - Encounter for general adult medical examination without abnormal findings
== END ==
LOC: HO.HMCFM 13:31
PROVIDERS: PCP Family Medicine; Visit Provider Family Medicine
DX: E66.9 Obesity, unspecified (principal); R07.89 Other chest pain; G47.30 Sleep apnea, unspecified; R73.9 Hyperglycemia, unspecified

== ENCOUNTER 2025-04-15 10:17 | Outpatient (AMB) | payer OTHER, SELFPAY ==
--- NOTE | 2025-04-15 10:12 | A.OFFPC_ITS ---
Intake Visit Reasons: F/U Chest X-Ray - [phone] Intake Note: patient is scheduled for radiology review Incident Manager Required: No Allergies No Known Allergies Allergy (Verified 04/15/25 10:13) Tobacco use date assessed: 02/18/24 Dental Screening Dental Screen Date: 02/18/24 HPI F/U Chest X-Ray - [phone] HPI Details Patient?wanted?to?further?review?his?prior?studies?for?chest?discomfort. Still?has?some?ongoing?discomfort. Patient?notes?that?he?has?family?members?who?have?had?sudden?cardiac? His?mother?is?wanting?to?have?further?workup. [facility] Surgical History History of wisdom tooth extraction History of colonoscopy History of appendectomy History of knee surgery Social History Household Members: Children Household Members Other:: Dog, roommates Housing: House Are you a primary customer care coordinator to a significant other at home: No Do you presently have visiting nurse or other home services: No 75 years or older and lives alone: No Alcohol intake: never Patient Tobacco Use Status: Never used Tobacco e-Cigarette/Vaping Use: Never Used Second Hand Smoke Exposure: No service: No Current occupational status: employed 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 Viktor Franz, Ashley Jacobsen, Miguel Crocker and colleagues, with an educational ayaka from [employer]. Review of Systems Const Denies chills, Denies fatigue, Denies fever(s), Denies headache(s) and Denies weakness ENT Denies dizziness and Denies headache(s) Card Details: Some?persisting?chest?discomfort Denies lightheadedness, Denies dyspnea and Denies other (Palpitations) Resp Denies cough, Denies dyspnea, Denies wheezing and Denies other ( shortness of breath) Musc Denies numbness and Denies tingling Neuro Denies dizziness, Denies headache(s), Denies numbness, Denies tingling, Denies paresthesias and Denies weakness Psych Denies anxiety and Denies depression Endo Denies fatigue Aller/Immun Denies wheezing Physical exam (Primary Care) Tobacco/Smoking Status: Tobacco use Status Tobacco use date assessed 02/18/24 04/15/25 10:14 Patient Tobacco Use Status Never used Tobacco 04/15/25 10:14 e-Cigarette/Vaping Use Never Used 04/15/25 10:14 Thrive Assessment: Date of Thrive Assessment Date Thrive assessed 03/07/25 04/15/25 10:14 Telehealth Telehealth Telehealth Platform: Telephone Location of provider rendering services: practice address Location of patient: address on file Patient Identification confirmed using: Name, : Yes Telehealth method: voice only Patient verbally consented to treatment: Yes Patient verbally consented to billing insurance company: Yes Patient informed of any privacy concerns related to visit: Yes Minutes spent on Phone/Video with Pt.: 11 Coding Level of Care Code Tele Est Pt Level 2 (44674) Diagnoses Chest discomfort R07.89 Family history of heart disease Z82.49 Assessment & Plan Assessment & Plan (1) Chest discomfort: Code(s): R07.89 - Other chest pain Category: Medical (2) Family history of heart disease: Code(s): Z82.49 - Family history of ischemic heart disease and other diseases of the circulatory system Category: Medical Plan Ongoing?chest?discomfort. Review?patient's?chest?x-ray?and?EKG?as?well?as?recent?stress?test. Patient?sa ys?he?has?a?strong?family?history?of?heart?disease?and?sudden?cardiac?. His?mother?is?wanting?him?to?get?further?workup. Checking?echocardiogram.??Referring?him?to?Cardiology. Orders: Orders CA echo transthoracic complete Today R07.89 - Other chest pain, R94.31 - Abnormal electrocardiogram [ECG] [EKG] Referrals Cardiology Referral R07.89 - Other chest pain
== END 2025-04-15 15:04 | disposition home or self-care (01) ==
LOC: HO.HMCFM 10:17
PROVIDERS: PCP Family Medicine; Visit Provider Family Medicine
DX: R07.89 Other chest pain (principal); Z82.49 Family history of ischemic heart disease and other diseases of the circulatory system

== ENCOUNTER → 2025-04-15 10:17 | Outpatient (BNVA) | payer OTHER, SELFPAY | PROVIDERS: PCP Family Medicine; Visit Provider Family Medicine | DX: Z13.89 Encounter for screening for other disorder (principal) ==

== ENCOUNTER → 2025-05-16 14:59 | Outpatient (REF) | payer OTHER, SELFPAY ==
--- NOTE | 2025-05-16 15:04 | CA_ITS ---
Transthoracic Echocardiogram Patient (Last, First, Middle): Artemio Wynne, Gender: Male Date of : 1985 Age: 40 Procedure Date: 05/16/2025 Procedure Type: Transthoracic Echocardiogram Location: OP Height: 172.72 cm Weight: 113.4 kg BSA: 2.25 m2 Heart Rate: 89 bpm BP: 124 / 64 mmHg Jewelry Salesperson: SB Referring MD: Ramiro Edgar MD Symptoms: R07.89 - Other chest pain Study Quality: Adequate ECG Rhythm: Sinus Conclusions: - The left ventricular systolic function is normal. The calculated ejection fraction is 59% by biplane method. - Possible anomalous coronary artery. Consider coronary CTA if clinically indicated. - No obvious valvular pathology seen on this study. Findings Left Ventricle Normal left ventricular cavity size. The left ventricular systolic function is normal. The calculated ejection fraction is 59% by biplane method. There is no evidence of regional wall motion abnormalities. Diastolic function is normal for age. There is mild septal asymmetric hypertrophy. Right Ventricle Normal right ventricular cavity size and systolic function. Atria Both atria are normal in size. Aortic Valve There is a normal trileaflet aortic valve. There is no aortic valve stenosis. There is no aortic valve regurgitation. Mitral Valve The mitral valve appears normal. There is no mitral valve regurgitation. There is no mitral valve stenosis. Pulmonic Valve The pulmonic valve is likely normal. Tricuspid Valve There is trace tricuspid valve regurgitation. There is no evidence of pulmonary hypertension. Great Vessels The asc aorta is normal in size. Venous The inferior vena cava is normal in size and collapses greater than 50% with inspiration. Pericardium/Pleural There is no evidence of pericardial effusion. Prior Study Comparison No significant change compared to prior study dated: 12/25/2016. Recommendations, Care & Conclusions No obvious valvular pathology seen on this study. Measurements 2D Linear Measurements IVSd: 1.16 0.6-0.9/0.6-1.0 cm LVIDd: 4.29 3.9-5.3/4.2-5.9 cm LVIDd Index: 1.91 2.4-3.2/2.2-3.1 cm/m2 LVIDs: 2.45 2.0-3.6 cm LVPWd: 0.85 0.7-1.1 cm LA Diam: 3.10 2.7-3.8/3.0-4.0 cm LAIDs Index: 1.38 1.5-2.3 cm/m2 LV Mass: 177.94 67-162/88-224 g LV Mass Index: 79.08 43-95/49-115 g/m2 LVOT Diam: 2.30 3.0+(-)1.3 cm 2D Systolic Function EF 4C: 51.60 >55% EF 2C: 64.40 >55% EF BiP: 59.00 >55% Mitral Valve MV Pk E: 0.78 MV PK A: 0.76 MV Decel Time: 200.00 E/A: 1.00 E'Lateral: 14.80 E'Medial: 7.94 E/E' Med: 9.80 E/E' Lat: 5.20 PHT: 58.00 MVA PHT: 3.79 Decel Cameron: 3.89 Aortic Valve AoV Pk Nicko: 1.35 AoV Pk Grad: 7.00 DANE: 4.57 LVOT LVOT Pk Nicko: 1.44 LVOT Mn Nicko: 0.96 LVOT VTI: 0.24 LVOT Pk Grad: 8.00 LVOT Mn Grad: 4.00 LVOT Diam: 2.30 LVOT Area: 4.15 Diastolic Function MV Pk E: 0.78 MV Pk A: 0.76 E/A: 1.00 E'Medial: 7.94 E/E' Med: 9.80 E' Laterial: 14.80 E/E' Lat: 5.20 Right Ventricle TAPSE (mm): 25.30 TVS' Nicko: 13.50 Tricuspid Valve RA Press: 3.00 Great Vessels Aorta Sinus of Valsalva: 3.60 2.0-3.5 cm Ao Asc: 3.20 2.1-3.4 cm Pulmonary Valve PV Pk Nicko: 0.99 Peak PV Grad: 4.00 Updated in Other Vendor System with Status of Final Rudy Burnham MD electronically signed on 05/16/2025 4:20:22 PM with status of Final
--- OUTSIDE RECORDS SUMMARY | 2025-05-16 16:14 | XMS_ITS ---
Author Name [facility] Organization Unknown History of Medication Use Medication [...] Diagnosis Location Date Ambulatory [facility] 04/01/2025 Ambulatory [facility] 03/22/2025 Ambulatory [facility] 03/14/2025 Ambulatory [facility] 03/10/2025 Ambulatory [facility] 03/10/2025 Ambulatory [facility] 03/10/2025 Ambulatory [facility] 03/10/2025 Ambulatory [facility] 03/09/2025
== END ==
LOC: HO.CARD 14:59
PROVIDERS: Absent Provider Internal Medicine Cardiovascular Disease; PCP Family Medicine; Visit Provider Family Medicine
DX: R07.89 Other chest pain (principal); R94.31 Abnormal electrocardiogram [ECG] [EKG]
CPT/HCPCS: 93306

== ENCOUNTER → 2025-05-16 15:04 | Outpatient (BNV) | payer OTHER, SELFPAY | PROVIDERS: Absent Provider Internal Medicine Cardiovascular Disease; PCP Family Medicine; Visit Provider Internal Medicine | DX: I42.2 Other hypertrophic cardiomyopathy (principal) | CPT/HCPCS: 93306 ==

== ENCOUNTER 2025-08-05 10:40 | Outpatient (REF) | payer OTHER, SELFPAY ==
--- OUTSIDE RECORDS SUMMARY | 2025-08-05 11:41 | XMS_ITS | Clinical Summary ---
Author Organization [facility] Address [address] [place] [address] Care Team Providers Care Um Rn Name Role Phone Unknown, Primary Care Provider Unavailabl e Social History Tobacco Use Types Packs/Day Years Used Date Smoking Tobacco: Never Assessed Sex and Gender Information Value Date Recorded Sex Assigned at Not on file Gender Identity Not on file Sexual Orientation Not on file Job Start Date Occupation Industry Not on file Not on file Not on file Plan of Treatment Health Maintenance Due Date Last Done Comments Hepatitis B Vaccines (1 of 3 - 3-dose series) 1985 Hepatitis C Screening 1985 COVID-19 Vaccine (#1) 1987 Depression Screening 1999 Preventative Health Evaluation 2005 DTap / Tdap / Td (1 - Tdap) 2006 Influenza Vaccine (#1) 2025 Pneumococcal Vaccine Aged Out No long er eligible based on patient's age to complete this topic RSV Ped < 20 months Aged Out No longe r eligible based on patient's age to complete this topic Care Teams Um Rn Relationship Specialty Start Date End Date Unknown, PCP - General 02/14/21
--- OUTSIDE RECORDS SUMMARY | 2025-08-05 11:41 | XMS_ITS | Data Portability ---
Author Organization [facility] Address [address] [place] [address] Care Team Providers Care Glass Glazier Name Role Phone TATO VAZQUEZ Primary Care Provider TATO VAZQUEZ Referring Provider Assessment Encounter Date Assessment Date Assessment LastModified by Organization Details LastModified Time 03/10/2025 03/10/2025 He has had bilateral plantar fasciitis for approximately 7 years. He has exhausted conservative treatment including 2 courses of formal physical therapy for 6 to 8 weeks each, taking anti-inflammator ies, getting custom orthotics, changing his shoes multiple times, wearing a night splint, and home stretching. We discussed that as he has not made significant improvements, he does not have many options left. Ultimately, I think he may benefit from operative intervention including a gastroc recession and plantar fasciotomy. However, we did discuss that when people do have longstanding chronic plantar fasciitis, anecdotally, I have not seen as great of results with a plantar fasciotomy. However, as he feels like his symptoms are very debilitating for him, plan for an MRI first of his left side as he would like to consider surgical intervention on the side first. He will follow-up in 2 weeks to review his MRI. Not available 03/13/2025 20:45:51 Plan of Treatment Reminders Order Date Submit Date Provider Last Modified By Organization Details Last Modified Time Details Appointments None recorded. Lab None recorded. Referral None recorded. Procedures None recorded. Surgeries None recorded. Imaging XR, foot, 3 or more view 2024 025 [email or web address], [address], [place] [address], [place], [address], 12:00:39 MRI, ankle, w/o contrast 2024 025 [facility] [address], [place], [address], 14:06:42 XR, foot, 3 or more view 2024 [email or web address], [address], [address], [place], [address], 12:00:39 Medication Orders None recorded. Patient TargetsNo targets recorded. Patient Instructions Encounter Date Encounter Id Patient Instructions Last Modified By Organization Details Last Modified Time 03/10/2025 [id number] 3 views of the left foot obtained weightbearing on 03/10/25 demonstrate no acute osseous abnormalities. Alignment is normal. X-rays are normal. 3 views of the right foot obtained weightbearing on 03/10/2025 demonstrate no acute osseous abnormalities. Alignment is normal. X-rays are normal. Not available 03/13/2025 20:48:12 Reason for Referral None Reported. Results Created Date Observation Date Name Description Value Unit Range Abnormal Flag Note LastModifiedBy Organization Detail LastModifiedTime 03/30/2003/30/2025 MRI, ankle , w/o contr ast No observ ation record ed. [email or web address] [address], [place], [address], 05/19/2025 19:10:10 Result Notes None recorded. Problems Name Problem SNOMED Code Status Onset Date Resolution Date Notes Provider Name and Address Organization Details Recorded Time Bilateral plantar fasciitis [id number] 108 Active 2024 Fawn Cohen MD [address], [place], [address], [place] [facility], 20:45:59 Problem Notes None recorded. Medical Equipment None Reported. Medications Name Sig Start Date Stop Date Status Note LastModified by Organization Details LastModified Time clindamycin HCl 300 mg capsule TAKE 1 CAPSULE BY MOUTH EVERY 8 HOURS FOR 7 DAYS active Not Available Not Available No t Available Adderall XR 20 mg capsule,extend ed release TAKE 1 CAPSULE BY MOUTH EVERY DAY FOR 30 DAYS active Not Available Not Available No t Available ciprofloxacin 0.3 % eye drops LOCATION: RIGHT EYE. APPLY ONE DROP IN AFFECTED EYE 4 TIMES A DAY FOR FIVE DAYS. active Not Available Not Available No t Available dextroamphetam ine-amphetamin e ER 30 mg 24hr capsule,extend release TAKE 1 CAPSULE BY MOUTH EVERY MORNING active Not Available Not Available No t Available oxycodone 5 mg tablet TAKE 1 TABLET BY MOUTH EVERY 6 HOURS NEEDED FOR PAIN FOR 3 DAYS active Not Available Not Available No t Available Vitals Date Recorded Body height Body mass index (BMI) Body weight Provider Name and Address Organization Details Last Updated DateTime 03/10/2025 172.72 cm 38 kg/m2 326251.09 g Jose Eduardo [address] [place] [facility], 03/10/2025 09:06:59 Social History None recorded. Functional Status None recorded. Mental Status None recorded. Family History Nothing Reported. Medical History No medical history recorded. Past Encounters Encounter ID Performer Location Encounter Start Date Encounter Closed Date Diagnosis/Indication Diagnosis SNOMED-CT Code Diagnosis ICD10 Code Diagnosis IMO Codes Diagnosis Note [id number] Fawn Cohen MD [address] [address] 03/10/2025 08:59:12 03/10/2025 09:41:10 Pain in right foot [id number] [facility] M79.671 [id number] Pain in left foot 243685 0232 [facility] M79.672 [id number] Bilateral plantar fasciitis [id number] M72.2 [id number] Health Concerns Section Related Observation LastModified by Organization Detai ls LastModified Time None Recorded Concern Status LastModified by Organization Details LastModified Time None Recorded Advance Directives Directive None Recorded Payers Insurance Date Sequence Insurance Name Policy Number Policy King Covered Member ID King Member ID Guarantor Name 03/21/[address] [place] [address] [place] [place] [id number] Artemio Wynne [id number] Artemio Ricci Notes Date Note Type Note Provider Name and Address Organization Details Recorded Time 03/10/2025 text/html Artemio Wynne is a 40-year-old male who presents today for new patient evaluation regarding his bilateral feet. He reports that for approximately 7 years, he has had pain in his bilateral heels. He notes that at that time, he had a job at [employer] in [place] where he was predominately on his feet. It worsened at that time and has essentially never fully improved. He was treated by a hris manager in [place] and ultimately had 4 injections on each foot. He notes that they never lasted more than approximately 2 weeks. His pain is a 7-9 out of 10. It is moderate to severe and constant and worsening. He has taken meloxicam with no improvement. He has gotten multiple different pairs of shoes and orthotics. He has completed formal physical therapy twice. He wears a night splint. He stretches his calves regularly at home. He is otherwise healthy. He is only on Adderall. 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 He does not smoke. Fawn Cohen MD [address], [place], [address], [place] [facility], P 03/13/2025 20:48:16
--- OUTSIDE RECORDS SUMMARY | 2025-08-05 11:41 | XMS_ITS | Clinical Summary ---
Author Organization [facility] Address [address] [place] [address] Care Team Providers Care Outboard Technician Name Role Phone Ramiro Edgar MD Primary Care Provider [phone] Allergies No known active allergies Medications amphetamine-dext [...] on file Legal Sex Male 3:38 PM MST Gender Identity Not on file Sexual Orientation Not on file Last Filed Vital Signs Vital Sign Reading Time Taken Comments Blood Pressure 126/80 11/23/2021 11:12 AM EST Pulse 117 11/23/2021 11:12 AM EST Temperature 36.7 C (98.1 F) 11/23/2021 11:12 AM EST Respiratory Rate 16 11/23/2021 11:12 AM EST [...] Preventive Exam 02/05/2022 02/05/2021, 2018 COVID-19 Vaccine (1 - 2023- season) 2025 Influenza Vaccine (#1) 2025 RSV Vaccine (SCDM) (1 - 1-dose 75+ series) 2062 [facility] [id number] [employer] Care Teams Outboard Technician Relationship Specialty Start Date End Date Ramiro Edgar MD [address] [facility] [place] [address] PCP - General Internal Medicine 11/23/21
[2025-08-05 15:11] LABS: Alanine Aminotransferase 30 U/L (0-40); Albumin Level 4.5 g/dL (3.5-5.0); Alkaline Phosphatase 77 U/L (39-117); Anion Gap 10 (12-20); Aspartate Amino Transferase 26 U/L (5-37); Blood Urea Nitrogen 11 mg/dL (9-16); Calcium 9.0 mg/dL (8.4-10.2); Carbon Dioxide 28 mmol/L (22-29); Chloride 106 mmol/L (96-108); Cholesterol 157 mg/dL (<200); Estimated Glomerular Filt Rate > 60; HDL Cholesterol 39 mg/dL (>40); Potassium 4.3 mmol/L (3.3-5.1); Sodium 140 mmol/L (135-145); Total Protein 7.1 g/dL (6.5-8.0); Triglycerides 59 mg/dL (<150)
== END 2025-08-05 10:41 | disposition home or self-care (01) ==
LOC: HO.WFDLDS 10:40
PROVIDERS: Visit Provider Family Medicine
DX: Z00.00 Encounter for general adult medical examination without abnormal findings (principal); Z13.6 Encounter for screening for cardiovascular disorders; R73.9 Hyperglycemia, unspecified; R73.01 Impaired fasting glucose
CPT/HCPCS: 36415; 80053; 80061; 83036

== ENCOUNTER 2025-08-08 14:20 | Outpatient (AMB) | payer OTHER, SELFPAY ==
--- NOTE | 2025-08-08 14:24 | A.OFFPC_ITS ---
Vital Signs 08/08/25 14:30 Height 5 ft 8 in Weight 254 lb BMI 38.6 BP 110/60 Blood Pressure Location Rt brachial Position Sitting Respiration 14 Pulse 96 Pulse Source Pulse Oximeter Temp 97.7 F Temp Source Temporal Artery Scan Pulse Oximetry (%) 96 Oxygen Delivery Method Room Air Intake Visit Reasons: mildly?elevated?fasting?BS and?mildly?elev?lipids Intake Note: Artemio presents in the office today for his fasting BS and Cholesterol. Sleep apnea. Allergies No Known Allergies Allergy (Verified 08/08/25 14:29) Tobacco use date assessed: 08/08/25 Dental Screening Dental Screen Date: 08/08/25 Did you have a dental visit in the last 12 months?: Yes Did you have a dental problem in the last 6 months where you did not have access to dental care?: No Was dental information given to patient?: Patient has dentist HPI mildly?elevated?fasting?BS and?mildly?elev?lipids HPI Details 40 y/o male presents to f/u lipids, FBS. Labs drawn 08.05.25. Reviewed labs with pt. A1c 5.5%. Triglycerides 59. TC 157. LDL 107. HDL low at 39. A1c today 5.7%. HPI Comments History of Present Illness Details Documentation assistance for Ramiro Edgar MD, was provided by Yariel Grimaldo, Head Of English on 08/08/2025 at 2:56 PM EST. I, Dr. Edgar, have read, observed, and verified documentation. ?? [facility] Surgical History History of wisdom tooth extraction History of colonoscopy History of appendectomy History of knee surgery Social History (Updated 08/08/25 @ 14:30 by Kala Chris [facility]) Household Members: Children Household Members Other:: Dog, roommates Housing: House Are you a primary critical care clinical nurse specialist to a significant other at home: No Do you presently have visiting nurse or other home services: No 75 years or older and lives alone: No Alcohol intake: never Patient Tobacco Use Status: Never used Tobacco e-Cigarette/Vaping Use: Never Used Second Hand Smoke Exposure: No service: No Current occupational status: employed 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 1. Little interest or pleasure in doing things: not at all 2. Feeling down, depressed, or hopeless: not at all 3. Trouble falling or staying asleep, or sleeping too much: several days 4. Feeling tired or having little energy: several days 5. Poor appetite or overeating: several days 6. Feeling bad about yourself - or that you are a failure or have let yourself or your family down: not at all 7. Trouble concentrating on things, such as reading the newspaper or watching television: several days 8. Moving or speaking so slowly that other people could have noticed. Or the opposite - being so fidgety or restless that you have been moving around a lot more than usual: not at all 9. Thoughts that you would be better off or of hurting yourself in some way: not at all Total score: 4 Source: Developed by Drs. Viktor Franz, Ashley Jacobsen, Miguel Crocker and colleagues, with an educational ayaka from [employer]. Thrive Questionnaire Date Thrive assessed: 03/07/25 I am a: Patient What is your living situation today?: I have a steady place to live Within the past 12 months, did the food you bought not last and you didn't have the money to get more?: Never true Within the past 12 months, did you worry whether your food would run out before you got money to buy more?: Never true Do you have trouble paying for medicines?: I choose not to answer this question Do you have trouble getting transportation to medical appointments?: No Do you have trouble paying your heating and electricity bill?: Yes Do you have trouble taking care of your child, family member or friend?: No Do you have trouble with day-to-day activities such as bathing, preparing meals, shopping, managing finances, etc.?: No Are you currently unemployed and looking for a job?: No Are you interested in more education?: Yes Please select the resources that you would like help with: None Currently or been in a relationship where the following occur: No concerns reported THRIVE Score: 1 AUDIT C Alcohol Use Questionnaire (AUDIT-C) 1. How often do you have a drink containing alcohol?: Monthly or less 2. How many drinks containing alcohol do you have on a typical day when you are drinking?: 1 or 2 3. How often do you have six or more drinks on one occasion?: Never Total Score: 1 ABDIEL-7 AMB Questionnaire ABDIEL-7 Date ABDIEL - 7 assessed: 03/07/25 Feeling nervous, anxious, or on edge: 1 = Several days Not being able to stop or control worryin = Several days Worrying too much about different things: 1 = Several days Trouble relaxin = Several days Being so restless that it is hard to sit still: 1 = Several days Becoming easily annoyed or irritable: 1 = Several days Feeling afraid as if something awful might happen: 0 = Not at all Total ABDIEL-7 score (0-4 normal; 5-9 mild; 10-14 moderate; 15-21 severe): 6 Source: Developed by Drs. Viktor Franz, Ashley Jacobsen, Miguel Crocker and colleagues, with an educational ayaka from [employer]. Review of Systems Const Denies chills, Denies fatigue, Denies fever(s), Denies headache(s) and Denies weakness ENT Denies dizziness and Denies headache(s) Card Denies dyspnea Resp Denies cough, Denies dyspnea, Denies wheezing and Denies other (shortness of breath) Musc Denies numbness and Denies tingling Neuro Denies dizziness, Denies headache(s), Denies numbness, Denies tingling and Denies weakness Psych Denies anxiety and Denies depression Endo Denies fatigue Aller/Immun Denies wheezing Physical exam (Primary Care) Vital Signs: Last Vital Signs Temp 97.7 F 08/08/25 14:30 Pulse 96 08/08/25 14:30 Resp 14 08/08/25 14:30 BP 110/60 08/08/25 14:30 Pulse Ox 96 08/08/25 14:30 Oxygen Delivery Method Room Air 08/08/25 14:30 BMI result Body Mass Index 38.6 Tobacco/Smoking Status: Tobacco use Status Tobacco use date assessed 08/08/25 08/08/25 14:35 Patient Tobacco Use Status Never used Tobacco 08/08/25 14:30 e-Cigarette/Vaping Use Never Used 08/08/25 14:30 PHQ-9: PHQ-9 Score PHQ-9: Total score 4 08/08/25 14:56 Thrive Assessment: Date of Thrive Assessment Date Thrive assessed 03/07/25 08/08/25 14:27 Currently or been in a relationship where the following occur: No concerns reported Const General: well developed; No acute distress Nutritional Appearance: well nourished and obese Orientation/consciousness: patient oriented x3 HENMT Head: Yes normocephalic and Yes atraumatic Eyes General: appearance normal, both eyes and all related structures Pupils: Equal, round and reactive pupils present EOM: EOMs intact bilaterally Resp Effort & Inspection: normal respiratory effort Neuro General: patient oriented x3 and gait normal Cranial nerves: Yes Equal, round and reactive pupils present Psych Affect: normal affect Results AMB Hemoglobin A1c AMB Hemoglobin A1c 5.7 % Last Edit by Kala Chris CMA on 08/08/25 14:57 Results Reviewed Results Reviewed: Laboratory Last Values Hgb A1c (Clinic) 5.7 % (4.0-6.0) 08/08/25 14:36 Coding Level of Care Code Est Pt Level 4 (92159) Diagnoses Chest discomfort R07.89 Elevated LDL cholesterol level E78.00 Family history of heart disease Z82.49 Obesity E66.9 Sleep apnea G47.30 Pre-diabetes R73.03 Assessment & Plan Assessment & Plan (1) Chest discomfort: Code(s): R07.89 - Other chest pain Category: Medical Plan: Ongoing chest discomfort EKG was okay. Stress test earlier this year was negative for ischemia. Echocardiogram shows question of coronary artery anomaly but as mentioned, stress test negative for ischemia. Chest x-ray was negative He has an upcoming appointment with cardiology. Advised he should go to the emergency department if he is having chest pain for longer than few minutes which does not resolve rest (2) Elevated LDL cholesterol level: Code(s): E78.00 - Pure hypercholesterolemia, unspecified Category: Medical Plan: Elevated LDL cholesterol Work at a diet low in saturated fats and cholesterol We can recheck this with next blood draw (3) Family history of heart disease: Code(s): Z82.49 - Family history of ischemic heart disease and other diseases of the circulatory system Category: Medical (4) Obesity: Code(s): E66.9 - Obesity, unspecified Category: Medical (5) Sleep apnea: Code(s): G47.30 - Sleep apnea, unspecified Category: Medical (6) Pre-diabetes: Code(s): R73.03 - Prediabetes Category: Medical Plan: A1c 5.7% Pre diabetes range Encouraged a diet lower in saturated fats and cholesterol in also weight loss. Plan Patient is obese and has sleep apnea Will send a script for Mounjaro Risk /benefits discussed Orders: Orders AMB Hemoglobin A1c Today R73.9 - Hyperglycemia, unspecified Lipid Panel Today E78.6 - Lipoprotein deficiency, Z00.00 - Encounter for general adult medical examination without abnormal findings Hemoglobin A1c Today R73.01 - Impaired fasting glucose, R73.9 - Hyperglycemia, unspecified Comprehensive [place]. Panel Fast Today E78.6 - Lipoprotein deficiency, Z00.00 - Encounter for general adult medical examination without abnormal findings Medications: New tirzepatide (Mounjaro) for 4 weeks 2.5 mg (0.5 mL) subcut QWEEK 2 mL 3RF 28 days E66.9 - Obesity, unspecified, G47.30 - Sleep apnea, unspecified
[2025-08-08 14:30] VITALS: BP 110/60; PULSE 96; RESP 14; TEMP 36.5; O2SAT 96; BMI 38.6
--- OUTSIDE RECORDS SUMMARY | 2025-08-08 16:49 | XMS_ITS | Clinical Summary ---
Author Organization [facility] Address [address] [place] [address] Care Team Providers Care Vice Provost Name Role Phone Ramiro Edgar MD Primary Care Provider [phone] Allergies No known active allergies Medications amphetamine-dext [...] (1 - 1-dose 75+ series) 2062 [facility] [id number] [employer] Care Teams Vice Provost Relationship Specialty Start Date End Date Ramiro Edgar MD [address] [facility] [place] [address] PCP - General Internal Medicine 11/23/21
--- OUTSIDE RECORDS SUMMARY | 2025-08-08 16:49 | XMS_ITS | Clinical Summary ---
Author Organization [facility] Address [address] [place] [address] Care Team Providers Care Bar Roller Name Role Phone Unknown, Primary Care Provider [...] age to complete this topic Care Teams Bar Roller Relationship Specialty Start Date End Date Unknown, PCP - General 02/14/21
== END 2025-08-08 15:21 | disposition home or self-care (01) ==
LOC: HO.HMCFM 14:21
PROVIDERS: PCP Family Medicine; Visit Provider Family Medicine
DX: R07.89 Other chest pain (principal); E78.00 Pure hypercholesterolemia, unspecified; Z68.38 Body mass index [BMI] 38.0-38.9, adult; E66.9 Obesity, unspecified; Z82.49 Family history of ischemic heart disease and other diseases of the circulatory system; G47.30 Sleep apnea, unspecified; R73.03 Prediabetes; R73.9 Hyperglycemia, unspecified

== ENCOUNTER → 2025-08-08 14:20 | Outpatient (BNVA) | payer OTHER, SELFPAY | PROVIDERS: PCP Family Medicine; Visit Provider Family Medicine | DX: R73.03 Prediabetes (principal); E78.5 Hyperlipidemia, unspecified; R07.89 Other chest pain; E78.00 Pure hypercholesterolemia, unspecified; E66.9 Obesity, unspecified; G47.30 Sleep apnea, unspecified; E78.6 Lipoprotein deficiency; R73.9 Hyperglycemia, unspecified; Z82.49 Family history of ischemic heart disease and other diseases of the circulatory system; Z68.38 Body mass index [BMI] 38.0-38.9, adult | CPT/HCPCS: 83036; 96127 ==

== ENCOUNTER 2025-09-05 08:54 | Outpatient (AMB) | payer OTHER, SELFPAY ==
--- NOTE | 2025-09-05 08:56 | A.OFFVIS_ITS ---
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 Also sleep apnea and currently been prescribed BiPAP to help with his sleep apnea. Patient has been trying to lose weight. However says about a year he has been having constant chest tightness across his chest feeling like symptoms after he has vomited. Symptoms are persists when he is taking deep breath or when he is coughing. He underwent a stress test recently which at high workload was negative for ischemia. An echocardiogram was done which was possibly suggestive of anomalous coronary artery and he was referred here for further evaluation. He has EKGs done with chest tightness today shows normal sinus rhythm with possible inferior infarct, most likely pseudo infarct pattern related to his body habitus. He denies any worsening shortness of breath, orthopnea, PND, leg edema. Has a about fluttering in his chest when he is excited or stressed about once a month or so. These are not very significant symptoms. He however notice that when he takes Adderall his heart rate is usually elevated. He has concerned because of strong family history of coronary artery disease, premature on both sides of his family including his dad, uncle, paternal grandfather as well as maternal uncles. [facility] Surgical History History of wisdom tooth extraction History of colonoscopy History of appendectomy History of knee surgery Social History Household Members: Children Household Members Other:: Dog, roommates Housing: House Are you a primary multi care technician to a significant other at home: No Do you presently have visiting nurse or other home services: No 75 years or older and lives alone: No Alcohol intake: never Patient Tobacco Use Status: Never used Tobacco e-Cigarette/Vaping Use: Never Used Second Hand Smoke Exposure: No service: No Current occupational status: employed 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 Current occupational exposures/hazards: No Cognitive needs: No Hearing needs: No Vision needs: No Review of Systems Const Denies chills, Reports daytime sleepiness, Denies fatigue, Denies fever(s), Denies frequent falls, Denies poor appetite, Reports snoring, Reports stops breathing during sleep, Denies weakness, Denies weight gain and Denies weight loss Eyes Denies loss of vision ENT Denies dizziness and Denies hearing loss Card Reports chest pain, Denies claudication, Denies leg edema, Denies lightheadedness, Reports palpitations, Denies dyspnea, Denies dyspnea on exertion and Denies orthopnea Resp Denies cough, Denies excessive phlegm production, Denies dyspnea, Denies dyspnea on exertion, Reports snoring and Denies wheezing GI Denies abdominal pain, Denies hematochezia, Denies change in bowel habits, Denies nausea and Denies vomiting Denies dysuria and Denies urinary frequency Musc Denies arthralgias, Denies muscle weakness and Denies numbness Skin/Breast Denies nail changes and Denies rash Neuro Denies Abnormal speech present, Denies dizziness, Denies frequent falls, Denies loss of vision, Denies memory loss, Denies numbness and Denies weakness Psych Denies depression and Denies memory loss Endo Denies fatigue and Reports palpitations Dainlo/Lymph Reports easy bruising and Reports other (anemia) Aller/Immun Denies wheezing Physical Exam Vital Signs: Last Vital Signs Pulse 81 09/05/25 08:57 BP 116/74 09/05/25 08:57 BMI result Body Mass Index 39.6 Const General: cooperative, comfortable, no acute distress, alert, awake and Physically active Nutritional Appearance: obese Orientation/consciousness: patient oriented x3 Limitations: no limitations HEENT Head: Yes normocephalic and Yes atraumatic Neck Neck: Yes trachea midline, Yes supple and Yes no JVD Resp Effort & Inspection: normal respiratory effort Auscultation: clear to auscultation bilaterally Cardio Jugular venous distension: no JVD Palpation: normal PMI Rate: regular rate Rhythm: regular rhythm Heart sounds: S1 normal heart sound present, S2 normal heart sound present, no click, no gallops, no murmurs and no rubs GI Auscultation: normal bowel sounds Skin General skin exam: no rashes or lesions noted Neuro General: patient oriented x3 and no focal motor deficits Speech: No Abnormal speech present Extrem General: Yes no clubbing, cyanosis or edema Psych Appearance: grossly normal Affect: Anxious affect present Office Procedures EKG Details: EKGs shows normal sinus rhythm with Q-waves in lead 3 and AVF, pseudo inferior infarct pattern due to body habitus [id number], Complete Assessment & Plan Assessment & Plan (1) Chest discomfort: Code(s): R07.89 - Other chest pain Category: Medical Plan: Chest discomfort which is highly atypical and appears to be noncardiac in origin. Discussed with him about the same. Likely that this is most likely musculoskeletal anxiety related. He had a recent negative stress test at high workload which rules out significant obstructive coronary disease. However echocardiogram would suggestive of possible anomalous coronary artery. Although this is unlikely to cause his current chest pain syndrome we need to evaluate for anomalous coronary artery especially inter arterial course that could increase his risk for sudden cardiac that. This was discussed with him. Will suggest a coronary CTA. Coronary CTA would also help with diagnose is or presence of underlying coronary artery atherosclerosis which may further guide treatment. If there was no suggestion of anomalous coronary artery the significant coronary atherosclerosis generalized risk factor needs to be pursued. However if he does have presence of underlying coronary atherosclerosis then more aggressive lipid reduction with goal LDL less than 70 mg/dL and aggressive management of his metabolic syndrome can be then pursued. I think he will benefit from weight loss program and agree with initiation of GLP 1 antagonist. Also importance of CPAP therapy was discussed. He understands and agrees. Will follow up in the clinic if need be. Thank you for allowing me to partake in his care Orders: Orders CT Cardiac Coronary Angio 1 Week R07.89 - Other chest pain Coding Level of Care Code New Pt Level 4 (72136) Complex EM visit Add On G2211 Diagnoses Chest discomfort R07.89 CPT Codes EKG - CPT: 03759-[id number], Complete ([id number])
[2025-09-05 08:57] VITALS: BP 116/74; PULSE 81; BMI 39.6
--- OUTSIDE RECORDS SUMMARY | 2025-09-05 09:35 | XMS_ITS | Clinical Summary ---
Author Organization [facility] Address [address] [place] [address] Care Team Providers Care Breast Worker Name Role Phone Ramiro Edgar MD Primary Care Provider [phone] Allergies No known active allergies Medications amphetamine-dext [...] Last Done Comments Hepatitis C Screening 1987 MMR Vaccines (1 of 1 - Standard series) 02/13/1988 PHQ-9 Depression Screen 1999 Varicella Vaccines (1 of 2 - 13+ 2-dose series) 02/13/2000 Complete Annual HRA 2005 ABDIEL-7 Anxiety Screen 2005 DTaP,Tdap,and Td Vaccines (1 - Tdap) 2006 Hepatitis B Vaccines (1 of 3 - 19+ 3-dose series) 2006 Annual Preventive Exam 02/05/2022 02/05/2021, 2018 COVID-19 Vaccine (1 - 2023-25 season) 2025 Influenza Vaccine (#1) 2025 RSV Vaccine (SCDM) (1 - 1-dose 75+ series) 2062 Insurance [facility] Care Teams Breast Worker Relationship Specialty Start Date End Date Ramiro Edgar MD [address] [place] [address] PCP - General Internal Medicine 11/23/21
--- OUTSIDE RECORDS SUMMARY | 2025-09-05 09:35 | XMS_ITS | Clinical Summary ---
Author Organization [facility] Address [address] [place] [address] Care Team Providers Care Database Programmer Name Role Phone Unknown, Primary Care Provider [...] age to complete this topic Care Teams Database Programmer Relationship Specialty Start Date End Date Unknown, PCP - General 02/14/21
--- OUTSIDE RECORDS SUMMARY | 2025-09-05 09:35 | XMS_ITS | Data Portability ---
Author Organization [facility] Address [address] [place] [address] Care Team Providers Care Practice Administrator Name Role Phone TATO VAZQUEZ Primary Care Provider [phone] TATO VAZQUEZ Referring Provider Assessment Encounter Date [...] more view 2024 025 [email or web address] [facility], [address], [place] [address], [place], [address], 12:00:39 MRI, ankle, w/o contrast 2024 025 [facility] [address], [place], [address], 14:06:42 XR, foot, 3 or more view 2024 [facility], [address], [address], [place], [address], 12:00:39 Medication Orders None recorded. Patient TargetsNo targets recorded. Patient Instructions Encounter Date Encounter Id Patient Instructions Last Modified By Organization Details Last Modified Time 03/10/2025 [id number] views of the left foot obtained [...] ast No observ ation record ed. [email or web address] [facility] [address], [place], [address], 05/19/2025 19:10:10 Result Notes None recorded. Problems Name Problem SNOMED Code Status Onset Date Resolution Date Notes Provider Name and Address Organization Details Recorded Time Bilateral plantar fasciitis 51374233524981 108 Active 2024 Fawn Cohen MD [address], [facility], [address], [facility], 20:45:59 Problem Notes None recorded. Medical Equipment [...] Updated DateTime 03/10/2025 172.72 cm 38 kg/m2 572836.09 [address] [facility], 03/10/2025 09:06:59 Social History None recorded. Functional Status None recorded. Mental Status None recorded. Family History Nothing Reported. Medical History No medical history recorded. Past Encounters Encounter ID Performer Location Encounter Start Date Encounter Closed Date Diagnosis/Indication Diagnosis SNOMED-CT Code Diagnosis ICD10 Code Diagnosis IMO Codes Diagnosis Note [id number] Fawn Cohen MD [address] [address] 03/10/2025 08:59:12 03/10/2025 09:41:10 Pain in right foot [id number] [facility] M79.671 [id number] Pain in left foot 558499 9258 [facility] M79.672 [id number] Bilateral plantar fasciitis [id number] M72.2 [id number] Health Concerns Section Related Observation LastModified by Organization Detai ls LastModified Time None Recorded Concern Status LastModified by Organization Details LastModified Time None Recorded Advance Directives Directive None Recorded Payers Insurance Date Sequence Insurance Name Policy Number Policy King Covered Member ID King Member ID Guarantor Name 03/21/[address] [place] [address] ([facility] [place] [id number] Artemio Wynne [id number] Artemio Ricci Notes Date Note Type Note Provider Name and Address Organization Details Recorded Time 03/10/2025 text/html Artemio Wynne is a 40-year-old male who presents today for new patient evaluation regarding his bilateral feet. He reports that for approximately 7 years, he has had pain in his bilateral heels. He notes that at that time, he had a job at [employer] in [place] where he was predominately on his feet. It worsened at that time and has essentially never fully improved. He was treated by a entertainment director in [place] and ultimately had 4 injections on each [...] only on Adderall. 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 He does not smoke. Fawn Cohen MD [address], [place], [address], [place] [facility], P 03/13/2025 20:48:16
== END 2025-09-05 09:38 | disposition home or self-care (01) ==
LOC: HO.HCS 08:54
PROVIDERS: PCP Family Medicine; Visit Provider Internal Medicine Cardiovascular Disease
DX: R07.89 Other chest pain (principal)
CPT/HCPCS: 93010; 99204; G2211

== ENCOUNTER → 2025-09-05 08:54 | Outpatient (BNVA) | payer OTHER, SELFPAY | PROVIDERS: PCP Family Medicine; Visit Provider Internal Medicine Cardiovascular Disease | DX: R07.89 Other chest pain (principal) | CPT/HCPCS: 93005 ==